=== PATIENT | male | born 1960 | race Caucasian/White ===

== ENCOUNTER 2017-01-26 18:35 | Inpatient (IN) | payer OTHER ==
[~2017-01-26] VITALS: Ht 177.8 cm; Wt 76.4 kg
[~2017-01-26 18:35] MED LIST: AMOX500C2 PO; CHOL200047 PO; CLOP75TA28 PO; DIPH50C PO; INSU100I13 SUBQ; INSU100I8 SUBQ; LAC10 PO; LIP40 PO; SPIR50TA2 PO; SYN.15T2 PO
[2017-01-26 18:37] VITALS: BP 91/64; PULSE 108; RESP 20; O2SAT 99
--- NOTE | 2017-01-26 19:05 | ED.REPORT ---
HPI-Dizziness / Weakness Date of Service Jan 26, 2017 ED Provider: Dr. Clifford 56 y/o male with a hx of hypotension, chronic liver disease with jaundice, bacterial blood infection, thyroid disease, high cholesterol, and DM presents to the ED complaining of dizziness onset 3 days ago. He states he started "feeling funny and dizzy" at that point. He became dizzy when he stood up two nights ago and experienced an episode of syncope when attempting to walk. He reports hitting his head, but denies any pain from this. Associated symptoms include cloudy and darker than normal urine, headache, high heart rate, chest pain, diffuse myalgia, and lightheadedness. He denies chest pain, shortness of breath, fever, chills, dysuria, hematuria, or hematochezia. The pt states that he is still "not feeling right" in the ED. Nursing Notes Stated Complaint: LIGHTHEADED Chief Complaint: General Complaint Nursing Notes Reviewed: Yes Allergies: Coded Allergies: No Known Allergies (Verified , 02/21/16) Scheduled Atorvastatin (Lipitor) 40 Mg Tablet 40 MG PO HS Cholecalciferol (Vitamin D3) (Vitamin D3) 5,000 Unit Tablet 5,000 UNIT PO HS Insulin Glargine (Lantus U100 Solostar Insulin Pen) 100 Unit/1 Ml Insuln.pen 20 UNIT SUBQ BID Insulin Regular, Human (Novolin-R U100 Insulin Vial) 100 Unit/1 Ml Vial 12 UNITS SQ TIDWM Lactulose (Lactulose) 10 Gm/15 Ml Solution 15 ML PO QAM Levothyroxine (Levothyroxine) 175 Mcg Tablet 175 MCG PO QAM diphenhydrAMINE HCl (Benadryl) 25 Mg Capsule 50 MG PO BID General Time Seen by MD: 19:04 Chief Complaint Dizzy Hx Obtained From: Patient Arrived By: Walk-in Onset Occurred: 3 days ago Symptom Duration: Since onset Recent Healthcare: No recent hospitalization, Recent doctor visit Similar Sx Previous: No Past Medical History Past Medical History Notes: Admit April 2015 w/gram positive bacteremia Past Medical History 1. Hypothyroidism due to radioactive iodine treatment as a child 2. Primary sclerosing cholangitis. Diagnosed by ERCP at gastroenterology. 2.1 Chronic jaundice 2.2 Cirrhosis with thrombocytopenia and hypoalbuminemia Managed by [facility] hepatology 3. Type II diabetes mellitus. Denies nephropathy, neuropathy, or retinopathy 4. Liver Disease 5. ho MRSA (urine, blood) 05/02/15/= 6. high cholesterol 7. bacterial infection of blood 2014 Past Surgical History Thoracoscopy Smoking History Former Smoker Social History Drug Use: Denies drug use Other Social History: Good social support Ambulatory Status Independent Review of Systems Constitutional: Denies: Chills, Fever Respiratory: Denies: Shortness of breath Cardiovascular: Denies: Chest pain GI: Denies: Hematochezia Neurologic: Reports: Dizziness, Headache, Lightheaded, Syncope, Weakness Complete sys rev & neg: except as marked. Male: Denies Dysuria, Denies Hematuria Musculoskeletal: Reports: Myalgia Physical Exam Initial Vital Signs Vital Signs (First) Date Time Temp Pulse Resp B/P Pulse Ox O2 Delivery O2 Flow Rate FiO2 01/26/17 18:37 36.4 108 20 91/64 99 Room Air Initial VS: Reviewed General/Constitutional: Awake, Alert Head / Eyes: Atraumatic, Normocephalic, PERRL, EOMI, No nystagmus Respiratory / Chest: Atraumatic, Breath sounds NL, Breath sounds = bilat, No respiratory distress Cardiovascular: Regular rhythm, Heart sounds NL Heart Rate / Rhythm: Positive: Tachycardia Neurologic: Oriented X3, Speech NL, No motor deficits ENT: Atraumatic, Airway patent, Mucous membranes moist, Pharynx NL Neck: Atraumatic, Supple, Full range of motion Abdomen: Atraumatic, Soft, Non-tender Back: Atraumatic, Full range of motion Lower Extremity / Pelvis / MS: Atraumatic, Full range of motion Skin: No rash, Warm, Dry Multiple excoriations on skin but not infected. Jaundiced, baseline for patient Psychiatric: Affect NL, Mood NL Upper Extremity / MS: Atraumatic, Full range of motion Ankle / Foot: Full range of motion small 6 mm patch of redness on distal medial left second toe Interpretation & Diagnostics Lab Results Interpretation Result Diagram: 01/26/17192301/26/171923 Test 01/26/17 19:24 01/26/17 21:00 White Blood Count 18.9th/mm3 (3.8-10.1) Red Blood Count 3.68mil/mm3 (4.40-5.80) Hemoglobin 10.0g/dL (13.8-17.2) Hematocrit 29.7% (41.0-50.0) Mean Corpuscular Volume 80.7fL (81-100) Mean Corpuscular Hemoglobin 27.2pg (27.0-35.0) Mean Corpuscular Hemoglobin Concent 33.7% (32.0-37.0) Red Cell Distribution Width 15.8% (12.3-15.4) Platelet Count 159bil/L (150-400) Neutrophils (%) (Auto) 86.7% (40-74) Lymphocytes (%) (Auto) 5.0% (14-46) Monocytes (%) (Auto) 7.6% (4-12) Eosinophils (%) (Auto) 0.2% (0-5) Basophils (%) (Auto) 0.1% (0-3) Prothrombin Time 10.5sec (8.1-12.5) Prothromb Time International Ratio 0.98ratio Activated Partial Thromboplast Time 27.6sec (22.8-33.0) Sodium Level 126mEq/L (134-144) Potassium Level 4.2mEq/L (3.5-5.2) Chloride Level 88mEq/L (97-108) Carbon Dioxide Level 20mmol/L (18-29) Blood Urea Nitrogen 33mg/dL (6-24) Creatinine 1.28mg/dL (0.76-1.27) Estimat Glomerular Filtration Rate 62mL/min (>59) Glucose Level 378mg/dL (60-99) Lactic Acid Level 1.7mmol/L (0.4-2.0) Calcium Level 9.1mg/dL (8.5-10.1) Magnesium Level 2.1mg/dL (1.6-2.6) Total Bilirubin 6.5mg/dL (0.0-1.2) Aspartate Amino Transf (AST/SGOT) 124U/L (0-50) Alanine Aminotransferase (ALT/SGPT) 65U/L (0-44) Alkaline Phosphatase 1098U/L (25-150) Troponin T < 0.010ug/L (0.0-0.011) Pro-B-Type Natriuretic Peptide 954.6pg/mL (0-210) Total Protein 7.8g/dL (6.4-8.4) Albumin 2.6g/dL (3.4-5.0) Procalcitonin 4.30ng/mL (0.00-0.08) Hold Nguyen Top Tube Received (Received) Urine Color Dark yellow (YELLOW) Urine Appearance Hazy (CLEAR,HAZY) Urine pH 6.0 (5.0-8.0) Urine Specific [place] 1.010 (1.003-1.035) Urine Protein 100mg/dL (NEG,TRACE) Urine Glucose (UA) 500mg/dL (NEGATIVE) Urine Ketones Negativemg/dL (NEGATIVE) Urine Occult Blood Large (NEGATIVE) Urine Nitrite Positive (NEGATIVE) Urine Bilirubin Moderate (NEGATIVE) Urine Ictotest Positive (Negative) Urine Urobilinogen 4.0mg/dL (NORMAL) Urine Leukocyte Esterase Moderate (NEGATIVE) Urine RBC 11-50/hpf (0-2) Urine WBC 0-5/hpf (0-5) Urine Epithelial Cells None/hpf (NONE-MOD) Urine Crystals None seen (NONE SEEN) Urine Bacteria Few/hpf (NONE-FEW) Urine Hyaline Casts None/lpf (NONE) Urine Granular Casts None seen (NONE SEEN) Urine Waxy Casts None seen (NONE SEEN) Urine Red Blood Cell Casts None seen (NONE SEEN) Urine White Blood Cell Casts None seen (NONE SEEN) Urine Mucus Present (None Seen) Urine Trichomonas None seen (NONE SEEN) Urine Yeast None (NONE SEEN) Urinalysis Comment None Urine Culture Reflexed Indicated ECG Interpretation ECG Interpretation: Sinus tachycardia. Rate 103. no ST elevation T wave inversion in aVR and V3 Unchanged from prior Time: 19:15 Interpreted by: ED physician X-Ray Chest Interpretation Chest Xray Interpretation: IMPRESSION: 1. Small right pleural effusion versus pleural thickening. Dictated by: Ayan Sanders M.D. on 01/26/2017 at 20:51 Approved by: Ayan Sanders M.D. on 01/26/2017 at 20:52 Interpretation / Wet Read by: Interpret - Radiologist CT Head Interpretation IMPRESSION: 1. No acute intracranial abnormality. 2. Bilateral white matter hypodensities likely representing [id number] chronic small vessel ischemic changes. Dictated by: Ayan Sanders M.D. on 01/26/2017 at 20:07 Approved by: Ayan Sanders M.D. on 01/26/2017 at 20:09 Study: Head CT no contrast Interpretation / Wet Read by: Interpret - Radiologist Re-Eval/Medical Decision Med Decision/Clinical Course 56-year-old male with past medical history of poorly controlled diabetes, bacteremia several times, diabetic foot infections, and unknown liver disease which causes chronic elevated bili and transaminitis here with syncopal episode several days ago along with lightheadedness with standing. Differential diagnosis includes but is not limited to hypovolemia versus dehydration versus pneumonia versus urinary tract infection. I did perform a CT scan on the patient's head to rule out intracranial abnormality as he fell recently and hit his head. His CT head was normal. CBC was remarkable for baseline anemia, along with leukocytosis which is not his baseline. He does have a left shift. CMP shows hyponatremia which does appear to be patient's baseline, along with elevated T bili and elevated LFTs, which are also patients baseline. He has an acute kidney injury. When he arrived, he had a shock index with tachycardia in the 110s and hypotension with systolics in the 90s. This improved with 1 L of fluids. His chest x-ray and urinalysis are normal. At this time, I do not feel patient requires LP to rule out meningitis, as he does not have any signs of meningitis. I do feel, however, that he has some infectious process going on. His abdominal exam is completely benign and I do not feel he requires CT scan of his abdomen. I feel he most likely has bacteremia again. He has had it several times without known source. I have drawn blood cultures, and started him on broad-spectrum antibiotics, and admitted him to the hospitalist. He is aware and amenable to admission. Re-Evaluation/Progress #1: Time of Eval: 20:54 Patient Status: Condition improved Re-Evaluation/Progress Note: Pt rechecked, who is comfortable. He is informed of his radiology results and further treatment plan. Re-Evaluation/Progress #2: Time of Eval: 21:23 Patient Status: Condition improved Re-Evaluation/Progress Note: Pt rechecked, who is comfortable. Non-tender abdomen. FROM in the neck. No headache. The plan for admission is discussed. The pt understands and agrees with the plan. All questions are addressed at this time. Re-Evaluation/Progress #3: Time of Eval: 21:34 Patient Status: Condition improved Re-Evaluation/Progress Note: Pt rechecked and further physical evaluation is performed. Consultation : Referral / Consult Name: Estela Joiner DO Consulted With: Hospitalist Call Returned at: 21:41 Nuclear Control Room Operator: Agrees with eval, Agrees with plan, Accepts admit Note: Spoke with Dr. Joiner, hospitalist, regarding pt's case. Dr. Joiner agrees with the evaluation and agrees to admit the pt. Counseled Regarding: Diagnosis, Lab results, Need for admission Patient Discharge & Departure Impression: Primary Impression: Leukocytosis Leukocytosis type: unspecified Qualified Code: D72.829 - Elevated white blood cell count, unspecified Additional Impressions: Acute kidney injury Tachycardia Disposition: ADMITTED TO HOSPITAL Discharge Condition All VS Reviewed: Yes Condition: Stable Referrals: Jessica Aguilar MD (PCP) Scribe Attestation Portion of this note were transcribed by Danielle Orellana and Manohar Miller. I, Dr. Clifford, personally performed the history,physical exam and medical decision- making; I reviewed and confirmed the accuracy of the information in transcribed note. Signed by Danielle Orellana and Chandan Bartlettibe. 01/26/2017 and 2258. Jessica Aguilar MD, Rebecca A MD Jan 26, 2017 19:05 Danielle Orellana Jan 26, 2017 19:14 MANOHAR MILLER Jan 26, 2017 20:55
[2017-01-26 19:38] LABS: BASOPHILS % (AUTO) 0.1 % (0-3); EOSINOPHILS % (AUTO) 0.2 % (0-5); MONOCYTES % (AUTO) 7.6 % (4-12); Mean Corpuscular Hemoglobin 27.2 pg (27.0-35.0); Mean Corpuscular Volume 80.7 fL (81-100); NEUTROPHILS % (AUTO) 86.7 % (40-74); Platelet Count 159 bil/L (150-400)
[2017-01-26 19:50] LABS: INR 0.98 ratio
[2017-01-26 19:57] LABS: TROPONIN T < 0.010 ug/L (0.0-0.011)
[2017-01-26 20:06] LABS: Magnesium 2.1 mg/dL (1.6-2.6)
--- NOTE | 2017-01-26 20:10 | DRSVH ---
PROCEDURE: CT BRAIN WITHOUT CONTRAST ([id number]) INDICATIONS: trauma TECHNIQUE: Noncontrast 4.5 mm thick angled axial sections acquired from the foramen magnum to the vertex, with c oronal reformats. COMPARISON: None. FINDINGS: Image quality: Excellent. CSF spaces: Basal cisterns are patent. No extra-axial fluid collections. Ventricles are normal in size and shape. Brain: No intracranial hemorrhage, mass, or mass effect. There are subcortical, periventricular and deep white matter hypodensities which are nonspecific but suggestive of [id number] chronic sma ll vessel ischemic changes. There is intracranial internal carotid artery atherosclerosis. Skull and face: Calvarium and visualized facial bones are intact, without suspicious lesions. Sinuses: Visualized sinuses and mastoids are clear. IMPRESSION: 1. No acute intracranial abnormality. 2. Bilateral white matter hypodensities likely representing [id number] chronic small vessel is chemic changes. Dictated by: Ayan Sanders M.D. on 01/26/2017 at 20:07 Approved by: Ayan Sanders M.D. on 01/26/2017 at 20:09
[2017-01-26] MEDS ORDERED: 0.9% Sodium Chloride 1,000 ML IV ONE (20:20)
--- NOTE | 2017-01-26 20:54 | DRSVH ---
PROCEDURE: X-RAY CHEST, TWO VIEWS ([id number]) INDICATIONS: lightheadedness TECHNIQUE: 2 views of the chest were acquired. COMPARISON: [facility], CR, CHEST 2VW, 01/17/2008, 14:27. [facility], CR, X R CHEST 2VW, 10/17/2016, 16:53. FINDINGS: Surgical changes and devices: None. Lungs and pleura: There is mild blunting of the right costophrenic angle consistent with small pleura l effusion or pleural thickening. Lungs are otherwise clear. Mediastinum: Mediastinal contours are normal. Heart size is normal. Bones and chest wall: No suspicious bony abnormalities. Soft tissues appear unremarkable. IMPRESSION: 1. Small right pleural effusion versus pleural thickening. Dictated by: Ayan Sanders M.D. on 01/26/2017 at 20:51 Approved by: Ayan Sanders M.D. on 01/26/2017 at 20:52
[2017-01-26 21:14] VITALS: BP 139/78; PULSE 81; RESP 20; O2SAT 98
[2017-01-26 21:16] LABS: APPEARANCE,URINE HAZY (CLEAR,HAZY); COLOR,URINE DARK YELLOW (YELLOW)
[2017-01-26 21:17] LABS: OCCULT BLOOD,URINE LARGE (NEGATIVE)
[2017-01-26 21:19] LABS: ICTOTEST,URINE POSITIVE (Negative)
[2017-01-26] MEDS ORDERED: Vancomycin Dose per Pharmacist XX ONE (21:35)
[2017-01-26] MEDS ORDERED: Piperacillin-Tazo 3.375 Gm Inj 3.375 GM in Dextrose 5% Minibag Plus 50 ML IV ONE (21:35)
[2017-01-26] MEDS ORDERED: Vancomycin Inj 1,500 MG in 0.9% Sodium Chloride 500 ML IV ONE (22:00)
[2017-01-26] MEDS ORDERED: DIPH25CA6 PO (22:19)
[2017-01-26] MEDS ORDERED: INSU100V27 SQ (22:19)
[2017-01-26] MEDS ORDERED: CHOL500011 PO (22:19)
[2017-01-26] MEDS ORDERED: LEVO175T5 PO (22:22)
[2017-01-26] MEDS ORDERED: Polyethylene Glycol (PEG) 17 Gm Powder PO PRN (22:30)
[2017-01-26] MEDS ORDERED: Ondansetron 2 mg/mL 2 mL Inj IVPUSH PRN (22:30)
[2017-01-26] MEDS ORDERED: Alum-Mag Hydrox-Simeth 30 mL Suspension PO PRN (22:30)
--- NOTE | 2017-01-26 22:54 | PCM.HPMED ---
Subjective Date of Service Jan 26, 2017 Primary Provider: Admitting Physician: Estela Joiner DO Primary Care Physician: Jessica Aguilar MD Attending Physician: Estela Joiner DO Admit Status: From the Emergency Department Chief Complaint: Dizziness History of Present Illness: 56yoM with history of orthostatic hypotension, primary sclerosing cholangitis, DM type 2 insulin, hypothyriodism and prior infected diabetic foot ulcers ( including MRSA) who presented to the ED following a syncopal episode two days ago with the complaint of dizziness and generalized malaise. He states that he just 'hasn't felt right' for the past three days and two days ago he states that he blacked out upon standing. He endorses brief loss of consciousness but he states that he did not hit his head and denies any trauma secondary to the incident. Associated symptoms headache and generalized weakness. Of note, he reports scattered excoriations on his upper and lower extremities secondary to chronic itching related to his PSC, benadryl provides mild relief. He denies redness, swelling, increased tenderness or purulent drainage from any of these. Additionally he denies fever, chills, chest pain, cough, shortness of breath, darker than normal urine but otherwise no or GI symptoms. In the ED, vitals 36.4, BP 91/64, pulse 108, 99% on room air. Labs: wbc 18.9, H/ H 10.0/29.7, plts 159, sodium 126, potassium 4.2, chloride 88, bicarb 20, BUN 33 , creatinine 1.28, serum glucose 378. procalcitonin 4.30. lactic acid 1.7, total bili 6.5, AST/ALT 124/65, alk phos 1098, troponin negative x1, proBNP 954.6. Urinalysis- 0-5wc, 11-50rbc, large occult blood , positive nitrite, moderate bili, moderate leukocyte esterase, few bacteria, ECG showing sinus tachycardia with rate 103, no ST elevation and unchanged from prior. Chest xray showing a small right pleural effusion vs pleural thickening. CT head with no acute intracranial abnormality, bilateral white matter hypodensities likely representing mild-to- moderate chronic small vessel ischemic changes. Blood and urine cultures sent and he received an IV dose of vancomycin and zosyn as well as a 1L bolus of normal saline. Review of Systems: A comprehensive review of systems was conducted with the patient and found to be negative except as above in the History of Present Illness. Allergies Coded Allergies: No Known Allergies (Verified , 02/21/16) Home Medications Amoxicillin 1,000 MG PO TID Atorvastatin 40 MG PO HS Cholecalciferol (Vitamin D3) 4,000 UNIT PO HS Clopidogrel 75 MG PO DAILY Diphenhydramine Hcl 50 MG PO BID Insulin Glargine 12 UNIT SUBQ BID Insulin Glulisine 110-11 UNITS SUBQ TIDAC 10-11 unit nutritional dose, plus additional insulin (correctional dose) for food intake (carb count). Lactulose 10 Gm/15 Ml Solution 15 ML PO BID Levothyroxine 150 MCG PO DAILYAC [id number] MG PO QAM PMH Primary sclerosing cholangitis.Diagnosed by ERCP at gastroenterology. Chronic jaundice Cirrhosis with thrombocytopenia and hypoalbuminemia; Managed by [facility] hepatology Type II diabetes mellitus. Denies nephropathy, neuropathy, or retinopathy Hypothyroidism Hypotension Hyperlipidemia h/o necrotizing fasciitis h/o MRSA Surgical History Thoracoscopy I&D infected toe Family History Mother: diabetes Social History Hx Alcohol Use: No Hx Substance Use: No Hx Tobacco Use: Yes Smoking Status: Former Smoker Living Arrangement: with Family Exam Vital Signs Vital Sign - Last Date Time Temp Pulse Resp B/P Pulse Ox O2 Delivery O2 Flow Rate FiO2 01/26/17 21:14 37.1 81 20 139/78 98 Room Air Exam Gen: No acute distress, well-developed, well-nourished, appropriately interactive HEENT: NCAT, PERRLA, +scleral icterus, oropharynx appears normal, mucosa dry. Neck: nontender. No JVD, bruits or lymphadenopathy Cardiac: RRR with no murmurs, rubs, or gallops appreciated Lungs: Clear to auscultation bilaterally with no crackles, wheezes, or rhonchi. Abd: Soft, nontender, nondistended, bowel tones present, no ascites, no hepatosplenomegaly or masses appreciated. Ext: numerous/scattered excoriations 1-2 cm in diameter of upper/lower extremities of various stages of healing, no erythema, swelling or purulence noted. No cyanosis or edema. Skin: Jaundiced, warm, dry, excoriations as above Neuro: CN II-XII grossly intact, no focal motor or sensory deficits, alert and oriented x3. Psych: Normal mood and affect. Alert and oriented to person, place, and time. Lab and Diagnostics Labs Laboratory Tests Test 01/26/17 19:24 01/26/17 21:00 White Blood Count 18.9th/mm3 (3.8-10.1) Red Blood Count 3.68mil/mm3 (4.40-5.80) Hemoglobin 10.0g/dL (13.8-17.2) Hematocrit 29.7% (41.0-50.0) Mean Corpuscular Volume 80.7fL (81-100) Mean Corpuscular Hemoglobin 27.2pg (27.0-35.0) Mean Corpuscular Hemoglobin Concent 33.7% (32.0-37.0) Red Cell Distribution Width 15.8% (12.3-15.4) Platelet Count 159bil/L (150-400) Neutrophils (%) (Auto) 86.7% (40-74) Lymphocytes (%) (Auto) 5.0% (14-46) Monocytes (%) (Auto) 7.6% (4-12) Eosinophils (%) (Auto) 0.2% (0-5) Basophils (%) (Auto) 0.1% (0-3) Prothrombin Time 10.5sec (8.1-12.5) Prothromb Time International Ratio 0.98ratio Activated Partial Thromboplast Time 27.6sec (22.8-33.0) Sodium Level 126mEq/L (134-144) Potassium Level 4.2mEq/L (3.5-5.2) Chloride Level 88mEq/L (97-108) Carbon Dioxide Level 20mmol/L (18-29) Blood Urea Nitrogen 33mg/dL (6-24) Creatinine 1.28mg/dL (0.76-1.27) Estimat Glomerular Filtration Rate 62mL/min (>59) Glucose Level 378mg/dL (60-99) Lactic Acid Level 1.7mmol/L (0.4-2.0) Calcium Level 9.1mg/dL (8.5-10.1) Magnesium Level 2.1mg/dL (1.6-2.6) Total Bilirubin 6.5mg/dL (0.0-1.2) Aspartate Amino Transf (AST/SGOT) 124U/L (0-50) Alanine Aminotransferase (ALT/SGPT) 65U/L (0-44) Alkaline Phosphatase 1098U/L (25-150) Troponin T < 0.010ug/L (0.0-0.011) Pro-B-Type Natriuretic Peptide 954.6pg/mL (0-210) Total Protein 7.8g/dL (6.4-8.4) Albumin 2.6g/dL (3.4-5.0) Procalcitonin 4.30ng/mL (0.00-0.08) Hold Nguyen Top Tube Received (Received) Urine Color Dark yellow (YELLOW) Urine Appearance Hazy (CLEAR,HAZY) Urine pH 6.0 (5.0-8.0) Urine Specific [place] 1.010 (1.003-1.035) Urine Protein 100mg/dL (NEG,TRACE) Urine Glucose (UA) 500mg/dL (NEGATIVE) Urine Ketones Negativemg/dL (NEGATIVE) Urine Occult Blood Large (NEGATIVE) Urine Nitrite Positive (NEGATIVE) Urine Bilirubin Moderate (NEGATIVE) Urine Ictotest Positive (Negative) Urine Urobilinogen 4.0mg/dL (NORMAL) Urine Leukocyte Esterase Moderate (NEGATIVE) Urine RBC 11-50/hpf (0-2) Urine WBC 0-5/hpf (0-5) Urine Epithelial Cells None/hpf (NONE-MOD) Urine Crystals None seen (NONE SEEN) Urine Bacteria Few/hpf (NONE-FEW) Urine Hyaline Casts None/lpf (NONE) Urine Granular Casts None seen (NONE SEEN) Urine Waxy Casts None seen (NONE SEEN) Urine Red Blood Cell Casts None seen (NONE SEEN) Urine White Blood Cell Casts None seen (NONE SEEN) Urine Mucus Present (None Seen) Urine Trichomonas None seen (NONE SEEN) Urine Yeast None (NONE SEEN) Urinalysis Comment None Urine Culture Reflexed Indicated Microbiology 01/26/17 Blood Culture, Received Pending 01/26/17 Urine Culture, Received Pending Result Diagram: 01/26/17192301/26/171923 Microbiology Blood and urine cultures, pending. X-Rays, CTs and MRIs X-RAY CHEST, TWO VIEWS IMPRESSION: 1. Small right pleural effusion versus pleural thickening. Dictated by: Ayan Sanders M.D. on 01/26/2017 at 20:51 Approved by: Ayan Sanders M.D. on 01/26/2017 at 20:52 CT BRAIN WITHOUT CONTRAST IMPRESSION: 1. No acute intracranial abnormality. 2. Bilateral white matter hypodensities likely representing [id number] chronic small vessel ischemic changes. Dictated by: Ayan Sanders M.D. on 01/26/2017 at 20:07 Approved by: Ayan Sanders M.D. on 01/26/2017 at 20:09 12-lead ECG ECG showing sinus tachycardia with rate 103, no ST elevation and unchanged from prior. Chest xray showing a small right pleural effusion vs pleural thickening. Assessment & Plan 56yoM with history of orthostatic hypotension, primary sclerosing cholangitis, DM type 2 insulin, hypothyriodism and prior infected diabetic foot ulcers ( including MRSA) who presented to the ED following a syncopal episode two days ago with the complaint of dizziness and generalized malaise. Admitted for further evaluation and management of sepsis and syncope. 2. Sepsis, present on admission. Active. -meets criteria on admission: leukocytosis, tachycardia, hypotension; suspected infection w/ procalcitonin of 4.3, unknown source. -hx of infected diabetic foot ulcers, scattered excoriations of upper/lower extremities secondary to chronic itching. Do not appear infected. Likely intraabdominal -MRSA screen and blood cultures, pending -continue vancomycin, zosyn; start date 01/26/17 -procalcitonin 4.3, lactic acid 1.7 -MRSA screen and cultures, pending -IVFs normal saline at 100mls/hr -continue vancomycin/zosyn -CBC in the morning WILLAM, acute, POA -continue to monitor -avoid nephrotoxic medications Syncope, present on admission. Active. -likely secondary to dehydration due to poor PO intake. -sinus tachycardia on EKG otherwise unremarkable -chest xray with small right pleural effusion -CT head with no acute abnormalities -troponin negative x1 -proBNP elevated 954.6 -check orthostatics -continue IVFs -CBC, CMP, lactic acid, in the morning. Diabetes mellitus type 2, insulin using (chronic), present on admission. Active. -HbA1c, pending -home dose Lantus 20U bid; converted to 15U bid (d/t decreased PO intake but will likely require home dose) -correctional scale in place Primary sclerosing cholangitis w/subsequent cirrhosis, transaminitis and jaundice (chronic). Ongoing -reportedly diagnosed by ERCP at gastroenterology -continue home diphenhydramine for itching -continue home lactulose -CMP in the morning -consider GI consult Hypotension, chronic, Ongoing. -orthostatic vitals -continue IVFs as above -hold spironolactone Hyperlipidemia, chronic, managed -continue home statin Hypothyroidism, chronic, under therapy -continue home levothyroxine PRN: NO Acetaminophen-fever/headache/mild/moderate pain d/t cirrhosis Antiemetics, as needed Bowel regimen, as needed. Disposition: Patient is admitted under inpatient status with expected length of stay greater than 2 midnights due to severity of presenting symptoms, risk of adverse event, and complexity of treatment plan. Pain Evaluation: Adequate Pain Control GI Prophylaxis: Not indicated VTE Prophylaxis Indicated: Meets Criteria for Anticoag Therapy VTE Prophylaxis: Sub-Q Heparin (Unfractionated) Resuscitation Status: CPR: Attempt Resuscitation Attending Statement The patient was seen and examined together with house staff on 01/26/2017 and I have added additional information to the note above. Princess Preston DO Jan 26, 2017 22:54 Estela Joiner DO Jan 27, 2017 04:10 GI Prophylaxis: Not indicated VTE Prophylaxis Indicated: Meets Criteria for Anticoag Therapy VTE Prophylaxis: Sub-Q Heparin (Unfractionated) Resuscitation Status: CPR: Attempt Resuscitation Princess Preston DO Jan 26, 2017 22:54 VTE Prophylaxis: Sub-Q Heparin (Unfractionated) Resuscitation Status: CPR: Attempt Resuscitation Princess Preston DO Jan 26, 2017 22:54 Princess Preston DO Jan 26, 2017 22:54 - Continue hydroxyzine 25mg four times daily for itch - Hydrocortisone cream as needed for itch Hypotension, chronic, stable - Orthostatic vitals - Continue NS rehydration: 2L to be completed - Encourage po intake during stay and at discharge Hyperlipidemia, chronic, managed - Continue atorvastatin 40mg daily - Lipid panel pending Hypothyroidism, chronic, under therapy - Continue home medication- 150mcg Levoxyl - TSH and free T4 ordered - Recommend outpatient follow up for adjustments if needed History of MRSA septicemia, January 2015 - MRSA screen - vancomycin provided for possible foot infection will provide MRSA coverage Bowel regimen PRN Antiemetics PRN Amoxicillin 1,000 MG PO TID Atorvastatin 40 MG PO HS Cholecalciferol (Vitamin D3) 4,000 UNIT PO HS Clopidogrel 75 MG PO DAILY Diphenhydramine Hcl 50 MG PO BID Insulin Glargine 12 UNIT SUBQ BID Insulin Glulisine 110-11 UNITS SUBQ TIDAC 10-11 unit nutritional dose, plus additional insulin (correctional dose) for food intake (carb count). Lactulose 10 Gm/15 Ml Solution 15 ML PO BID Levothyroxine 150 MCG PO DAILYAC [id number] MG PO QAM Pain Evaluation: Adequate Pain Control GI Prophylaxis: Not indicated VTE Prophylaxis Indicated: Meets Criteria for Anticoag Therapy VTE Prophylaxis: Sub-Q Heparin (Unfractionated) Princess Preston DO Jan 26, 2017 22:54 01/26/174 01/26/171923 Microbiology Blood and urine cultures, pending. X-Rays, CTs and MRIs PROCEDURE: X-RAY CHEST, TWO VIEWS ([id number]) INDICATIONS: lightheadedness TECHNIQUE: 2 views of the chest were acquired. COMPARISON: [facility], CR, CHEST 2VW, 01/17/2008, 14:27. [facility], CR, XR CHEST 2VW, 10/17/2016, 16:53. FINDINGS: Surgical changes and devices: None. Lungs and pleura: There is mild blunting of the right costophrenic angle consistent with small pleural effusion or pleural thickening. Lungs are otherwise clear. Mediastinum: Mediastinal contours are normal. Heart size is normal. Bones and chest wall: No suspicious bony abnormalities. Soft tissues appear unremarkable. IMPRESSION: 1. Small right pleural effusion versus pleural thickening. Dictated by: Ayan Sanders M.D. on 01/26/2017 at 20:51 Approved by: Ayan Sanders M.D. on 01/26/2017 at 20:52 PROCEDURE: CT BRAIN WITHOUT CONTRAST ([id number]) INDICATIONS: trauma TECHNIQUE: Noncontrast 4.5 mm thick angled axial sections acquired from the foramen magnum to the vertex, with coronal reformats. COMPARISON: None. FINDINGS: Image quality: Excellent. CSF spaces: Basal cisterns are patent. No extra-axial fluid collections. Ventricles are normal in size and shape. Brain: No intracranial hemorrhage, mass, or mass effect. There are subcortical , periventricular and deep white matter hypodensities which are nonspecific but suggestive of ahiv-nu-ejofzdak chronic small vessel ischemic changes. There is intracranial internal carotid artery atherosclerosis. Skull and face: Calvarium and visualized facial bones are intact, without suspicious lesions. Sinuses: Visualized sinuses and mastoids are clear. IMPRESSION: 1. No acute intracranial abnormality. 2. Bilateral white matter hypodensities likely representing lzun-uv-qaimnxde chronic small vessel ischemic changes. Dictated by: Ayan Sanders M.D. on 01/26/2017 at 20:07 Approved by: Ayan Sanders M.D. on 01/26/2017 at 20:09 Princess Preston DO Jan 26, 2017 22:54
[2017-01-26 22:55] VITALS: BP 100/57; PULSE 90; RESP 20; O2SAT 99
[2017-01-26 23:24] VITALS: BP 116/72; PULSE 100; RESP 18; O2SAT 98
[2017-01-27] VITALS (17 sets, daily range): BP systolic 75–137; BP diastolic 43–78; PULSE 79–101; RESP 14–20; O2SAT 95–99
[2017-01-27] MEDS ORDERED: Glucose 40% Oral Gel 15 Gm Tube PO PRN (00:15)
[2017-01-27] MEDS ORDERED: Non-Formulary Medication (Levothyroxine 175 MCG) PO SCH (00:20)
[2017-01-27] MEDS: Sodium Chloride LOK Flush 10 mL Syringe IVFLUSH SCH ×3 (01:08→16:13)
[2017-01-27] MEDS: 0.9% Sodium Chloride 1,000 ML IV SCH ×4 (02:40→15:13)
[2017-01-27 06:02] LABS: BASOPHILS % (AUTO) 0 % (0-3); EOSINOPHILS % (AUTO) 0.4 % (0-5); Mean Corpuscular Volume 80.4 fL (81-100); NEUTROPHILS % (AUTO) 85.6 % (40-74); Platelet Count 131 bil/L (150-400)
--- NOTE | 2017-01-27 07:26 | NUR ---
NOC PT admitted over noc shift with cc of increased weakness over past few days and feeling dizzy. Pt ORA. Orthostatics were done and positive. Dropped from 130's to 70's standings. Pt reported dizziness. Denies any pain. Pt has uremia and has noted scabs on him from itching. THe top of his head has abrasion from "my car [place]roy falling on me." R laureano has abrasion from fall 2 days at home when pt "blacked out." PT went for abdominal CT. + results. PT now NPO. VOids per urinal, luther colored urine. Calls for assistance with ambulation. IV vanco was infusing when pt received from ED. Currently NS is infusing at 100ml. Urine will be strained for stone.
[2017-01-27] MEDS: Insulin LISPRO 300 Unit/3 mL Inj SUBQ SCH ×4 (08:28→22:00)
[2017-01-27] MEDS: Insulin GLARgine 100 Unit/mL Syringe SUBQ SCH ×2 (08:28→23:43)
[2017-01-27] MEDS: Heparin 5,000 Unit/mL Inj SUBQ SCH ×2 (08:29→16:13)
[2017-01-27] MEDS: Lactulose 20 Gm/30 mL 30 mL Syrup PO SCH (08:30)
[2017-01-27] MEDS ORDERED: diphenhydrAMINE 25 mg Capsule PO PRN (08:30)
[2017-01-27] MEDS ORDERED: 0.9% Sodium Chloride 1,000 ML IV ONE ×2 (08:40→12:00)
[2017-01-27] MEDS ORDERED: cefTRIAXone Inj 2,000 MG in Dextrose 5% Minibag Plus 50 ML IV SCH (08:40)
[2017-01-27 09:20] LABS: BASOPHILS % (AUTO) 0.1 % (0-3); EOSINOPHILS % (AUTO) 0.4 % (0-5); MONOCYTES % (AUTO) 5.6 % (4-12); Mean Corpuscular Hemoglobin 27.4 pg (27.0-35.0); Mean Corpuscular Volume 79.9 fL (81-100); NEUTROPHILS % (AUTO) 89.3 % (40-74); Platelet Count 137 bil/L (150-400)
--- NOTE | 2017-01-27 11:00 | NUR ---
HYPOTENSION Patient received 1 liter bolus of NS, BP barely increased to 103/60. HR in 80's, remains afebrile. Remains NPO in preparation for surgery this afternoon. C/o R lower flank pain, states it feels 'sore' when lying on right side too much. Urine strained, no stones. Care continues. Addendum: 01/27/17 at 1355 by VALERIA VELAZCO RN Completed 2nd liter bolus of NS, BP increased to 115/68.
--- NOTE | 2017-01-27 11:51 | DRSVH ---
PROCEDURE: CT ABDOMEN AND PELVIS WITHOUT CONTRAST ([id number]) INDICATIONS: sepsis, cirrhosis TECHNIQUE: Noncontrast 5 mm thick sections acquired from the diaphragms to the symphysis. 5 mm coronal and sagi ttal reformats were then performed. For radiation dose reduction, the following was used: automated exposure control, adjustment of mA and/or kV according to patient size. COMPARISON: None. FINDINGS: Image quality: Excellent. ABDOMEN: Lung bases: Lung bases are clear. Heart size is normal. Solid organs: Liver is shrunken and nodular in appearance. The spleen is enlarged without focal mass . Gallbladder is unremarkable. Pancreas is normal in contours. No adrenal nodules. Kidneys are nor mal in size. The left kidney demonstrates approximately 8-10 punctate nonobstructing renal calcificat ions. The right kidney demonstrates approximately 13-15 renal calcifications, the largest in the infe rior pole measuring approximately 5 mm, Hounsfield units 504. There is a 3 mm calcification within th e posterior dependent right renal pelvis. 6 mm calcification Hounsfield units 984 is present within t he right proximal ureter. There has mild to moderate right hydronephrosis. Peritoneum and bowel: Unenhanced bowel loops demonstrate normal wall thickness and caliber. No free fluid or air. Nodes and vessels: No retroperitoneal or mesenteric adenopathy by size criteria. Aorta and inferior vena cava are normal in caliber. Miscellaneous: No ventral hernias. PELVIS: Genitourinary: Bladder wall thickness is normal. No bladder calculi. Miscellaneous: No inguinal hernias or adenopathy. Bones: No suspicious bony lesions. No vertebral body compression fractures. IMPRESSION: 1. Mild to moderate right hydronephrosis and hydroureter secondary to obstructing 6 mm proximal right ureteral calcification. 2. Nonobstructing bilateral subcentimeter renal calculi as above. 3. Splenomegaly and cirrhosis. Dictated by: Gwendolyn Hollins M.D. on 01/27/2017 at 11:25 Approved by: Gwendolyn Hollins M.D. on 01/27/2017 at 11:50
--- NOTE | 2017-01-27 11:56 | PCM.PNMED ---
Subjective Date of Service Jan 27, 2017 Subjective Pt complains of flank pain this morning. He denies any fever or chills. He denies nausea and vomiting. He states he continues to feel "unwell and dizzy". No other complaints or concerns at this time. Exam Vital Signs Vital Sign - Last Date Time Temp Pulse Resp B/P Pulse Ox O2 Delivery O2 Flow Rate FiO2 01/27/17 11:22 36.8 92 16 103/60 98 Room Air Intake and Output 01/26/17 01/26/17 01/27/17 Cumulative From/Thru 15:00 23:00 07:00 01/26/17 18:37 - 01/27/17 06:18 Intake Total 895 ml 895 ml Output Total 625 ml 625 ml Balance 270 ml 270 ml Intake Oral 650 ml 650 ml IV Total 245 ml 245 ml Output Urine Total 625 ml 625 ml Exam GENERAL: NAD, Pt laying in bed comfortably HEENT: AT/NC, PERRLA, EOMI, Sclerae are icteric, Mucus Membranes are moist CARDIAC: RRR; No M/R/G PULM: CTAB; No wheezes or rhonchi bilaterally ABD: Soft, Nontender, Nondistended, Positive bowel sounds in all quadrants, No Hepatosplenomegaly appreciated; Bilateral CVA tenderness present EXT: No C/C/E; No calf tenderness bilaterally SKIN: Pt is jaundiced NEURO: Alert and oriented x3; Following all commands PSYCH: Normal mood and affect IVs and Medications Medications Reviewed: Medications were reviewed in detail Lab and Diagnostics Result Diagram: 01/27/17 0858 01/27/17 0550 Microbiology Blood and urine cultures, pending. X-Rays, CTs and MRIs X-RAY CHEST, TWO VIEWS IMPRESSION: 1. Small right pleural effusion versus pleural thickening. Dictated by: Ayan Sanders M.D. on 01/26/2017 at 20:51 Approved by: Ayan Sanders M.D. on 01/26/2017 at 20:52 CT BRAIN WITHOUT CONTRAST IMPRESSION: 1. No acute intracranial abnormality. 2. Bilateral white matter hypodensities likely representing [id number] chronic small vessel ischemic changes. Dictated by: Ayan Sanders M.D. on 01/26/2017 at 20:07 Approved by: Ayan Sanders M.D. on 01/26/2017 at 20:09 12-lead ECG ECG showing sinus tachycardia with rate 103, no ST elevation and unchanged from prior. Chest xray showing a small right pleural effusion vs pleural thickening. Assessment & Plan 56yoM with history of orthostatic hypotension, primary sclerosing cholangitis, DM type 2 insulin, hypothyriodism and prior infected diabetic foot ulcers ( including MRSA) who presented to the ED following a syncopal episode two days ago with the complaint of dizziness and generalized malaise. Admitted for further evaluation and management of sepsis and syncope. 1. Severe Sepsis - Pt is significantly hypotensive this morning - Check Lacate q 2 hours x4 - Bolus with 1 liter NS STAT - Start NS at 150 mL/hour IV - Blood culture are pending - Pt was given a dose of IV Vancomycin and Zosyn in the ER - Likely source is urine, therefore I will start him on IV Rocephin 2 grams daily - ID consulted - Pt to be made PCC status as he is critically ill 2. Acute Urinary Tract Infection - Present on admission - Start IV Rocephin 2 grams daily now - Secondary to obstructing stone most likely 3. Nephrolithiasis - CT Abdomen and Pelvis confirms a large obstructing stone - Dr. Blanton with Urology has been consulted - IV Morphine PRN for pain relief - Pt is NPO now for pending procedure 4. Acute Kidney Injury - Secondary to renal hypoperfusion and obstruction likely - Continue IV normal saline - Avoid nephrotoxic agents - Repeat BMP in AM - Urology consulted for urgent cystoscopy and stone removal 5. Primary Sclerosing Cholangitis with Hepatic Cirrhosis - This is a chronic problem for this patient - Continue home medications including Benadryl for pruritis and Lactulose 6. Hypothyroidism - Continue Levothyroxine 7. Diabetes Mellitus, Type II - Continue Lantus BID - Continue SSI - Check FSBS q 6 hours for now while pt is NPO 40 minutes critical care time spent managing pts severe sepsis. GI Prophylaxis: Not indicated VTE Prophylaxis: Sub-Q Heparin (Unfractionated) VTE Mechanical Devices: Intermittant Pneumatic CD Resuscitation Status: CPR: Attempt Resuscitation Dallas Alicia MD Jan 27, 2017 11:56
[2017-01-27] MEDS ORDERED: Propofol 10,000 mCg/mL 20 mL Inj ONE (13:12)
[2017-01-27] MEDS ORDERED: fentaNYL-PF 50 mCg/mL 2 mL Inj ONE (13:12)
[2017-01-27] MEDS ORDERED: Ondansetron 2 mg/mL 2 mL Inj ONE (13:12)
[2017-01-27] MEDS ORDERED: EPHEDrine/NS 5 mg/mL 5 mL Syringe ONE (13:12)
[2017-01-27] MEDS ORDERED: CeFAZolin Inj 2 GM in IV Premix 1 EACH IV ONE (16:00)
[2017-01-27] MEDS ORDERED: Acetaminophen IV 1,000 mg IV ONE (16:00)
--- NOTE | 2017-01-27 16:05 | NUR ---
TRANSFER TO OR Patient's IV was saline locked, SCD sleeves in place. Telemetry box removed. Taken up to OR in hospital bed. Report given to TAPPER BIT.
--- NOTE | 2017-01-27 16:09 | NUR ---
Social Work-attempted assessment: Data:EMR Reviewed. Pt is a 56 y/o male who was admitted on 01/26/17 for dehyration per H&P. Pt's insurance is and PCP is Jessica Aguilar Md. EMR Reviewed. SW attempted to see pt, but pt out of room at procedure. SW to follow up with pt and discussed advanced directive. SW will continue to follow. Assessment:pt who is independent at baseline. Plan:SW to follow up tomorrow and complete assessment. SW will continue to follow. CHRISTOPHER Shin
--- NOTE | 2017-01-27 16:16 | PCM.HPANE ---
Patient Data Surgeon Admitting Provider:Estela Joiner DO Attending Provider:Estela Joiner DO Primary Care Physician:Jessica Aguilar MD Other Provider: Reason for Visit Leukocytosis Dehydration Ht/WT & BMI Height (Feet): 5 Height (Inches): 10.00 Weight (Kilograms): 69.900 Body Mass Index 22.06 Allergies Coded Allergies: No Known Allergies (Verified , 02/21/16) Past Anesthesia History Anesthesia History: Denies:: Anesthesia Reactions, Difficult Intubation, Fam Anesthesia Reaction, Fam Malignant Hypertherm, Malignant Hyperthermia Diabetes History Hx Diabetes?: Yes Current Bedside Blood Glucose: 117 MRSA MRSA: Yes (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 ago in nares, rechecked less than yr ago and neg.) Medications Active Scripts Atorvastatin (Lipitor)40 Mg Egtorz28 Mg PO HS #30 TABLET Ref 3 Prov:Kostas Pascual MD 06/11/14 Reported Medications Levothyroxine 175 Mcg Gyqzqd342 Mcg PO QAM Ref 0 01/26/17 diphenhydrAMINE HCl (Benadryl)25 Mg Yhcehaj78 Mg PO BID Ref 0 01/26/17 Cholecalciferol (Vitamin D3) (Vitamin D3)5,000 Unit Tablet5,000 Unit PO HS 01/26/17 Insulin Regular, Human (Novolin-R U100 Insulin Vial)100 Unit/1 Ml Vial12 Units SQ TIDWM #1 VIAL Ref 0 01/26/17 Insulin Glargine (Lantus U100 Solostar Insulin Pen)100 Unit/1 Ml Insuln.pen20 Unit SUBQ BID 09/30/15 Lactulose 10 Gm/15 Ml Gjmumzip16 Ml PO QAM 01/18/15 Discontinued Reported Medications Diphenhydramine Hcl (Benadryl)50 Mg Vuakezk07 Mg PO BID 01/07/16 Spironolactone 50 Mg Smukgl68 Mg PO QAM 09/30/15 Insulin Glulisine (Apidra U100 Insulin Solostar Pen)100 Unit/1 Ml Insuln.pen10- 11 Units SUBQ TIDAC 10-11 unit nutritional dose, plus additional insulin (correctional dose) for food intake (carb count). 04/29/15 Cholecalciferol (Vitamin D3) (Vitamin D3)2,000 Unit Capsule4,000 Unit PO HS 01/18/15 Discontinued Scripts Amoxicillin 500 Mg Capsule1,000 Mg PO TID #90 CAPSULE Ref 0 Prov:Deangelo Pascual MD 03/01/16 Clopidogrel 75 Mg Fefyxj74 Mg PO DAILY #30 TABLET Prov:Deangelo Pascual MD 03/01/16 Levothyroxine (Synthroid)150 Mcg Zwutct209 Mcg PO DAILYAC #30 TABLET Ref 3 Prov:Kostas Pascual MD 06/11/14 History History of ENT Problems?: No HEENT History: Denies:: Cataracts Difficult Intubation Dysphagia Glaucoma Hearing Problem Sinus Problem Other HEENT Pertinent History: hypothyroidism Hx of Heart Problems?: No Cardiovascular History: Positive for:: Cardiac Surgery (stent to RLE artery approx 1 year ago) Denies:: Atrial Fibrillation Chest Pain Congestive Heart Failure Edema Heart Murmur Hypertension Irregular Heartbeat Pacemaker Thrombophlebitis Hx of Respiratory Problem?: No Respiratory History: Positive for:: Chest Surgery (R. lung surgery secondary to infection) Dyspnea Pneumonia Denies:: Asthma COPD Emphysema Hemoptysis Tuberculosis Hx Neurologic Problems?: No Neurological History: Positive for:: Dizziness Denies:: Alzheimer's Disease CVA Dementia Headaches Parkinson's Disease Seizures Hx of GI Problems?: Yes Gastrointestinal History: Positive for:: Cirrhosis Denies:: Diverticulitis Gastroesphageal Reflux Gastrointestinal Bleeding Heartburn Hepatitis Hiatal Hernia Rectal Bleeding Other GI Pertinent History: sclerosing chonlangitis Hx of Problems?: Yes Genitourinary History: Positive for:: Urinary Tract Infection Denies:: HX of Hemodialysis Kidney Stones HX of Peritoneal Dialysis: No Male Hx: Denies:: Prostate Problems Scrotal Mass Testicular Surgery Other Skin Pertinent History: hx of necrotizing fascitis, jaundice Hx Musculoskeletal Problems?: No Musculoskeletal History: Denies:: Back Injury Joint Replacement Musculoskeletal Trauma Hx of Psycho/Social Problems?: No Psycho Social History: Denies:: Anxiety Bipolar Disorder Hx Depression Suicide Attempt Hx Surgeries?: Yes Hx Any Other Health Problems?: Yes Other History: Positive for:: Endocrine Disease Hospitalization Thyroid Disease (had thyroidectomy) Denies:: Cancer History Blood Transfusions: Positive for:: Accept Blood Products? Denies:: Blood Transfuse Reaction Blood Transfusions Hx Diabetes: YesBedside Blood Glucose: 117 Other Pertinent History: R lung abcess removal,stent to RLE Hx Alcohol Use: NoHx Substance Use: No Smoking Status: Former Smoker Have You Smoked inLast 12 mo: No Stop/Bang Treated for Sleep Apnea?: No Do You Have a CPAP Machine?: No S-Snoring: Do You Snore Loudly: No T-Tired: feel tired, fatigued: Yes O-Obsered: Observed not breath: No P-Blood Pressure: treated: No B- Body Mass Index > 35 kg/m2: No A- Age over 50: Yes N- Neck Large Circumference: No G- Gender Male: Yes KERI Total Score: 2 KERI Risk Assessment: Low Risk, <3 Yes Risk Assessment Category Category 1A: Patient has history of documented sleep apnea, and HAS NOT received any narcotic, sedative or anesthesia administration during this stay. Category 1B: Patient has history of documented sleep apnea, and HAS received any narcotic , sedative or anesthesia administration during this stay Category 2: Patient has SUSPECTED Obstructive Sleep Apnea, and HAS received any narcotic , sedative or anesthesia administration during this stay. Category 3: Patient has SUSPECTED Obstructive Sleep Apnea and HAS NOT received narcotic, sedative or anesthesia administration during this stay. Category 4: Outpatient in Procedural Areas with known sleep apnea or who screen positive for High Risk via the STOP/BANG questionnaire. Exam Exam Vital Signs Vital Signs Date Time Temp Pulse Resp B/P Pulse Ox O2 Delivery O2 Flow Rate FiO2 01/27/17 13:20 93 115/68 01/27/17 12:36 93 01/27/17 12:32 36.4 88 20 124/72 97 Room Air 01/27/17 11:22 36.8 92 16 103/60 98 Room Air 01/27/17 09:14 36.7 84 20 96/60 98 01/27/17 08:33 37.0 90 18 115/62 99 Room Air General Appearance: Alert HEENT/AIRWAY: MP 2 Lungs: Clear to Auscultation Heart: Exam Unremarkable Meds/Labs/Diagnostics Admission Meds Current Medications Sodium Chloride 1,000 ml @ 0 mls/hr Q0M ONCE IV Last administered on 20:39; Start 01/26/17 at 20:20; Stop 01/26/17 at 20:21; Status DC Piperacillin Sod/ Tazobactam Sod 3.375 gm/Dextrose/ Water 50 ml @ 150 mls/hr ONCE ONCE IV Last administered on 01/26/17 21:59; Start 01/26/17 at 21:35; Stop 01/26/17 at 21:54; Status DC Vancomycin HCl/ Sodium Chloride (Vancocin Inj/ Normal Saline) 500 ml @ 333.333 mls/hr ONCE ONCE IV Last administered on 01/26/17 22:21; Start 01/26/17 at 22 :00; Stop 01/26/17 at 23:29; Status DC Sodium Chloride (Saline Car Flush) 10 ml CAR IVFLUSH Last administered on 01:08; Start 01/27/17 at 00:30 Insulin Glargine (Lantus Insulin Inj) 15 unit BID@08,22 SUBQ Last administered on 01/27/17 08:28; Start 01/27/17 at 08:00 Insulin Human Lispro Nutritional Dose to be given pr... [facility] SUBQ Last administered on 01/27/17 08:28; Start 01/27/17 at 08:00 Sodium Chloride (Normal Saline) 1,000 ml @ 100 mls/hr Q10H IV Last administered on 01/27/17 02:40; Start 01/27/17 at 02:15 Heparin Sodium (Porcine) 5000 unit 5,000 unit Q8 SUBQ Last administered on 01/27 08:29; Start 01/27/17 at 08:30 Ceftriaxone Sodium 2000 mg/ Dextrose/Water 50 ml @ 100 mls/hr DAILY IV Last administered on 01/27/17 10:28; Start 01/27/17 at 08:40 Sodium Chloride 1,000 ml @ 0 mls/hr Q0M ONCE IV Last administered on 09:00; Start 01/27/17 at 08:40; Stop 01/27/17 at 08:43; Status DC Sodium Chloride 1,000 ml @ 150 mls/hr Q6H40M IV Last administered on 15:13; Start 01/27/17 at 08:40 Acetaminophen 1000 mg/Premix 100 ml @ 400 mls/hr OT ONCE IV Last administered on 01/27/17 15:12; Start 01/27/17 at 16:00; Stop 01/27/17 at 16:14 ; Status DC Sodium Chloride (Normal Saline) 1,000 ml @ 0 mls/hr Q0M ONCE IV Last administered on 01/27/17 12:25; Start 01/27/17 at 12:00; Stop 01/27/17 at 12:01 ; Status DC Bedside Blood Glucose: 117 Labs Test 01/26/17 19:24 01/26/17 21:00 01/27/17 05:25 01/27/17 05:50 Prothrombin Time 10.5sec (8.1-12.5) Prothromb Time International Ratio 0.98ratio Activated Partial Thromboplast Time 27.6sec (22.8-33.0) Magnesium Level 2.1mg/dL (1.6-2.6) Troponin T < 0.010ug/L (0.0-0.011) Pro-B-Type Natriuretic Peptide 954.6pg/mL (0-210) Hold Nguyen Top Tube Received (Received) Urine Color Dark yellow (YELLOW) Urine Appearance Hazy (CLEAR,HAZY) Urine pH 6.0 (5.0-8.0) Urine Specific [place] 1.010 (1.003-1.035) Urine Protein 100mg/dL (NEG,TRACE) Urine Glucose (UA) 500mg/dL (NEGATIVE) Urine Ketones Negativemg/dL (NEGATIVE) Urine Occult Blood Large (NEGATIVE) Urine Nitrite Positive (NEGATIVE) Urine Bilirubin Moderate (NEGATIVE) Urine Ictotest Positive (Negative) Urine Urobilinogen 4.0mg/dL (NORMAL) Urine Leukocyte Esterase Moderate (NEGATIVE) Urine RBC 11-50/hpf (0-2) Urine WBC 0-5/hpf (0-5) Urine Epithelial Cells None/hpf (NONE-MOD) Urine Crystals None seen (NONE SEEN) Urine Bacteria Few/hpf (NONE-FEW) Urine Hyaline Casts None/lpf (NONE) Urine Granular Casts None seen (NONE SEEN) Urine Waxy Casts None seen (NONE SEEN) Urine Red Blood Cell Casts None seen (NONE SEEN) Urine White Blood Cell Casts None seen (NONE SEEN) Urine Mucus Present (None Seen) Urine Trichomonas None seen (NONE SEEN) Urine Yeast None (NONE SEEN) Urinalysis Comment None Urine Culture Reflexed Indicated Procalcitonin 3.04ng/mL (0.00-0.08) Sodium Level 126mEq/L (134-144) Potassium Level 3.6mEq/L (3.5-5.2) Chloride Level 94mEq/L (97-108) Carbon Dioxide Level 20mmol/L (18-29) Blood Urea Nitrogen 29mg/dL (6-24) Creatinine 1.41mg/dL (0.76-1.27) Estimat Glomerular Filtration Rate 55mL/min (>59) Glucose Level 352mg/dL (60-99) Calcium Level 8.0mg/dL (8.5-10.1) Total Bilirubin 5.5mg/dL (0.0-1.2) Aspartate Amino Transf (AST/SGOT) 120U/L (0-50) Alanine Aminotransferase (ALT/SGPT) 61U/L (0-44) Alkaline Phosphatase 1093U/L (25-150) Total Protein 6.0g/dL (6.4-8.4) Albumin 2.3g/dL (3.4-5.0) Test 01/27/17 08:58 01/27/17 14:55 White Blood Count 13.7th/mm3 (3.8-10.1) Red Blood Count 3.18mil/mm3 (4.40-5.80) Hemoglobin 8.7g/dL (13.8-17.2) Hematocrit 25.4% (41.0-50.0) Mean Corpuscular Volume 79.9fL (81-100) Mean Corpuscular Hemoglobin 27.4pg (27.0-35.0) Mean Corpuscular Hemoglobin Concent 34.3% (32.0-37.0) Red Cell Distribution Width 15.1% (12.3-15.4) Platelet Count 137bil/L (150-400) Neutrophils (%) (Auto) 89.3% (40-74) Lymphocytes (%) (Auto) 4.3% (14-46) Monocytes (%) (Auto) 5.6% (4-12) Eosinophils (%) (Auto) 0.4% (0-5) Basophils (%) (Auto) 0.1% (0-3) Lactic Acid Level 0.7mmol/L (0.4-2.0) Plan Impression Patient chart reviewed, patient interviewed and anesthestic plan with risks, benefits, and alternatives discussed, and informed consent obtained. NPO Status: MN ASA Physical Status: ASA3 Severe Disease Anesthetic Plan: GA Bene/Risks/Altern/Consents: Yes HP Complete Prior to Induction: Yes Other discussed plan with patient and Dr Sandoval. Relativley short procedure, somewhat urgent given patient's clinical status. Addison Cahu MD Jan 27, 2017 16:16
[2017-01-27] MEDS ORDERED: Lactated Ringer's 1,000 ML IV ONE (16:25)
[2017-01-27] MEDS ORDERED: Lactated Ringer's 1,000 ML IV SCH (16:51)
[2017-01-27] MEDS ORDERED: Lactated Ringer's 500 ML IV PRN (16:51)
[2017-01-27] MEDS ORDERED: fentaNYL-PF 50 mCg/mL 2 mL Inj IVPUSH PRN (16:55)
[2017-01-27] MEDS ORDERED: Atropine 0.4 mg/mL Inj IVPUSH PRN (16:55)
[2017-01-27] MEDS ORDERED: Dexamethasone 4 mg/mL Inj IVPUSH PRN (16:55)
[2017-01-27] MEDS ORDERED: MetoCLOpramide 5 mg/mL 2 mL Inj IVPUSH PRN (16:55)
[2017-01-27] MEDS ORDERED: HYDROmorphone 1 mg/mL Inj IVPUSH PRN (16:55)
[2017-01-27] MEDS ORDERED: Phenylephrine 10,000 mCg/mL Inj IVPUSH PRN (16:55)
[2017-01-27] MEDS ORDERED: EPHEDrine Sulfate 50 mg/mL Inj IVPUSH PRN (16:55)
[2017-01-27] MEDS: Lactated Ringer's 1,000 ML IV SCH (17:57)
--- NOTE | 2017-01-27 18:04 | NUR ---
POST OP Patient came back to room 1022 on hospital bed. Alert and oriented x3, awake and answering all questions. States he has no pain. IV fluids running. Denies nausea/vomiting. BG 62. Gave cranberry juice and patient ordered dinner. Tele placed back onto patient.
[2017-01-27] MEDS ORDERED: Piperacillin-Tazo 3.375 Gm Inj 3.375 GM in Dextrose 5% Minibag Plus 50 ML IV SCH (18:30)
--- NOTE | 2017-01-27 18:43 | NUR ---
Positive Blood Cultures MD taylor, 4/4 blood culture bottles were positive for gram positive cocci staph.
[2017-01-27 20:07] LABS: APPEARANCE,URINE TURBID (CLEAR,HAZY); COLOR,URINE YELLOW (YELLOW); OCCULT BLOOD,URINE LARGE (NEGATIVE); PH,URINE 5.5 (5.0-8.0)
[2017-01-27] MEDS ORDERED: Ceftaroline Inj 600 MG in Dextrose 5% 250 ML IV SCH (20:30)
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
[2017-01-28] VITALS (9 sets, daily range): BP systolic 94–118; BP diastolic 55–68; PULSE 85–105; RESP 16–18; O2SAT 95–98
--- NOTE | 2017-01-28 00:13 | CONS ---
[address] [address] CONSULTATION REPORT PATIENT: MAHENDRA BENNETT : 1960 MR#: [id number] ADMIT: 01/26/2017 JOB ID: [id number] DATE OF SERVICE: REQUESTING PHYSICIAN: Hospitalist service. HISTORY OF PRESENT ILLNESS: The patient is a 56-year-old gentleman with a long and complicated history of a multitude of medical comorbidities including primary sclerosing cholangitis, orthostatic hypotension, type 2 diabetes mellitus, hypothyroidism and previous hospitalizations for infected diabetic foot ulcer, including MRSA. He had been feeling overall poorly the last two or three days consisting of dizziness, malaise and anorexia, prompting his presentation to [facility] Emergency Department late last evening. Assessment revealed a leukocytosis of 18.9, lactic acid 0.9. Urinalysis was consistent with infection and culture is pending. Significance included moderate leukocyte esterase, nitrite positive. CT KUB January 27, 2017, demonstrates a 6 mm obstructing right proximal ureteral calculus of 984 Hounsfield units with associated moderate to moderately severe hydronephrosis. There are about a dozen small calculi in both the right and left kidney measuring up to 5 mm. He denies previous history of stone disease or documented infection. ALLERGIES: No known allergies. REVIEW OF SYSTEMS: Generally: Negative other than that described over the last approximately three days, noted in the HPI. ADMISSION MEDICATIONS: 1. Spironolactone 50 mg p.o. q.a.m. 2. Levothyroxine 150 mcg p.o. daily. 3. Lactulose 10 g per 15 mL p.o. b.i.d. 4. Insulin. 5. Diphenhydramine 50 mg p.o. b.i.d. p.r.n. 6. Clopidogrel 75 mg p.o. daily. 7. Cholecalciferol 4000 units p.o. q.h.s. 8. Atorvastatin 40 mg p.o. q.h.s. 9. Amoxicillin 1000 mg p.o. t.i.d. PAST MEDICAL HISTORY: Primary sclerosing cholangitis, chronic jaundice, cirrhosis with associated thrombocytopenia and hypoalbuminemia, type 2 diabetes mellitus, hypothyroidism, orthostatic hypotension, hyperlipidemia, history of MRSA. PAST SURGICAL HISTORY: Thoracoscopy, ERCP, incision and drainage infected toe. SOCIAL HISTORY: Denies history of alcohol or substance abuse. He is a former tobacco user. PHYSICAL EXAMINATION: He is a well-developed, thin, chronically ill-appearing gentleman with mild jaundice, resting comfortably in bed. He is appropriate and well oriented. Head and neck exam: He has some excoriations on his forehead and balding area of his scalp and evidence of jaundice. JVD are unremarkable. Heart: Regular. No murmurs, rubs or extra sounds. Lungs: Clear bilaterally and equal. Abdomen: Soft, scaphoid. Bowel sounds present. No localizing tenderness. Extremities: No edema, clubbing or cyanosis. Small excoriations. He admits to chronic itch for which he uses Benadryl. LABORATORIES: As noted above in the HPI of significance. IMPRESSION: 1. A 6 mm obstructing right proximal ureteral stone. 2. Bilateral nephrolithiasis. 3. Probable urinary tract infection. PLAN: 1. Discussion, informed consent and scheduling today for cystoscopy and right ureteral stent placement. 2. Follow up pending urine and blood cultures and treat as indicated. 3. Consider reduction or elimination of supplemental calcium due to current formation of numerable renal calculi. 4. Add tamsulosin for management of bladder outlet obstruction and stent related pain. 5. Once current admission questions are answered and he is deemed medically stable, discuss and proceed to either extracorporeal shock wave lithotripsy or in situ laser lithotripsy.
[2017-01-28] MEDS: Sodium Chloride LOK Flush 10 mL Syringe IVFLUSH SCH ×3 (00:30→16:03)
[2017-01-28] MEDS: Lactated Ringer's 1,000 ML IV SCH ×3 (01:01→17:49)
[2017-01-28] MEDS: Heparin 5,000 Unit/mL Inj SUBQ SCH ×3 (01:14→17:08)
--- NOTE | 2017-01-28 05:23 | NUR ---
Antibiotix New IV abx orders - started zosyn and Teflaro. Pt reports pain when voiding- urine is strained and no stones present. Dark luther color, no clots or suspected blood. Pt infuisng NS with IV abx and LR per eMar oders when abx complete. Orthos to be completed in am. No low blood sugar. No CP, or SOB this shift. Care continues
[2017-01-28 07:04] LABS: BASOPHILS % (AUTO) 0.1 % (0-3); EOSINOPHILS % (AUTO) 1.4 % (0-5); MONOCYTES % (AUTO) 9.8 % (4-12); Mean Corpuscular Hemoglobin 27.2 pg (27.0-35.0); Mean Corpuscular Volume 81.1 fL (81-100); NEUTROPHILS % (AUTO) 82.2 % (40-74); Platelet Count 138 bil/L (150-400)
[2017-01-28] MEDS ORDERED: Piperacillin-Tazo 3.375 Gm Inj 3.375 GM in Dextrose 5% Minibag Plus 50 ML IV SCH (08:00)
[2017-01-28] MEDS: Insulin LISPRO 300 Unit/3 mL Inj SUBQ SCH ×4 (08:00→22:00)
[2017-01-28] MEDS ORDERED: 0.9% Sodium Chloride 100 ML ONE (08:26)
[2017-01-28] MEDS: Lactulose 20 Gm/30 mL 30 mL Syrup PO SCH (08:36)
[2017-01-28] MEDS: Insulin GLARgine 100 Unit/mL Syringe SUBQ SCH ×2 (08:38→22:18)
[2017-01-28] MEDS ORDERED: KCl 40 mEq/D5W 500 mL 40 MEQ in IV Premix 1 EACH IV ONE (10:25)
[2017-01-28] MEDS: Ceftaroline Inj 600 MG in Dextrose 5% 250 ML IV SCH ×2 (11:29→23:18)
--- NOTE | 2017-01-28 12:53 | PCM.PNMED ---
Subjective Date of Service Jan 28, 2017 Subjective Pt states he is feeling much better today than yesterday. He denies any fever or chills at this time. Pt has no other complaints at this time. Exam Vital Signs Vital Sign - Last Date Time Temp Pulse Resp B/P Pulse Ox O2 Delivery O2 Flow Rate FiO2 01/28/17 09:55 94/65 01/28/17 09:53 36.8 97 18 97 Room Air Intake and Output 01/27/17 01/27/17 01/28/17 Cumulative From/Thru 15:00 23:00 07:00 01/26/17 18:37 - 01/28/17 00:32 Intake Total 1537 ml 2625 ml 5057 ml Output Total 625 ml Balance 1537 ml 2625 ml 4432 ml Intake Oral 650 ml IV Total 1537 ml 2625 ml 4407 ml Output Urine Total 625 ml Exam GENERAL: NAD, Pt laying in bed comfortably HEENT: AT/NC, PERRLA, EOMI, Mucus Membranes are moist CARDIAC: RRR; No M/R/G PULM: CTAB; No wheezes or rhonchi bilaterally ABD: Soft, Nontender, Nondistended, Positive bowel sounds in all quadrants, No Hepatosplenomegaly appreciated EXT: No C/C/E; No calf tenderness bilaterally SKIN: Pt is less jaundiced than yesterday NEURO: Alert and oriented x3; Following all commands PSYCH: Normal mood and affect IVs and Medications Medications Reviewed: Medications were reviewed in detail Lab and Diagnostics Result Diagram: 01/28/17 0603 01/28/17 0603 Microbiology Blood and urine cultures, pending. X-Rays, CTs and MRIs X-RAY CHEST, TWO VIEWS IMPRESSION: 1. Small right pleural effusion versus pleural thickening. Dictated by: Ayan Sanders M.D. on 01/26/2017 at 20:51 Approved by: Ayan Sanders M.D. on 01/26/2017 at 20:52 CT BRAIN WITHOUT CONTRAST IMPRESSION: 1. No acute intracranial abnormality. 2. Bilateral white matter hypodensities likely representing [id number] chronic small vessel ischemic changes. Dictated by: Ayan Sanders M.D. on 01/26/2017 at 20:07 Approved by: Ayan Sanders M.D. on 01/26/2017 at 20:09 12-lead ECG ECG showing sinus tachycardia with rate 103, no ST elevation and unchanged from prior. Chest xray showing a small right pleural effusion vs pleural thickening. Assessment & Plan 56yoM with history of orthostatic hypotension, primary sclerosing cholangitis, DM type 2 insulin, hypothyriodism and prior infected diabetic foot ulcers ( including MRSA) who presented to the ED following a syncopal episode two days ago with the complaint of dizziness and generalized malaise. Admitted for further evaluation and management of sepsis and syncope. 1. Severe Sepsis - BP is stable - Lactate is normal - Continue to monitor BP closely - Blood cultures positive x4 - Continue IV Ceftaroline and Zosyn per ID - ID on board 2. Acute Urinary Tract Infection - Present on admission - Continue ABX as above - Secondary to obstructing stone most likely 3. Nephrolithiasis - Pt is status post right ureteral stent placement on 01/27/2017 - Dr. Sandoval with Urology managing - IV Morphine PRN for pain relief 4. Acute Kidney Injury - Secondary to renal hypoperfusion and obstruction likely - Renal function improving - Push PO fluid intake - Avoid nephrotoxic agents - Repeat BMP in AM - Urology on board 5. Primary Sclerosing Cholangitis with Hepatic Cirrhosis - This is a chronic problem for this patient - Continue home medications including Benadryl for pruritis and Lactulose 6. Hypothyroidism - Continue Levothyroxine 7. Diabetes Mellitus, Type II - Continue Lantus BID - Continue SSI - Check FSBS q AC and HS 8. Hypokalemia - Will give KCl 40 mEq IV now - Recheck BMP in AM GI Prophylaxis: Not indicated VTE Prophylaxis: Sub-Q Heparin (Unfractionated) VTE Mechanical Devices: Intermittant Pneumatic CD Resuscitation Status: CPR: Attempt Resuscitation Dallas Alicia MD Jan 28, 2017 12:52
--- NOTE | 2017-01-28 15:46 | NUR ---
Social Work-screening: Data:EMR Reviewed. Pt is a 56 y/o female who was admitted on 01/26/17 for leukocytosis per H&P. Pt's insurance is and PCP is Jessica Aguilar MD. EMR Reviewed. Pt's readmission is 4-high risk. SW met with pt to discuss discharge planning,SW role explained. Pt resides at home with his daughter where he remains independent with ADLs. Pt drives and does use any DME. Pt has no HH or SNF. 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 Pt has not completed DPOA/advanced directive, Pt does not want any paperwork at this time. Pt's family to provide transport home. No discharge needs identified. SW will continue to follow if needs arise. Assessment:Pt who is independent at baseline. Plan:Pt to discharge home when medically stable via POV. No discharge needs identified. SW will continue to follow if needs arise. CHRISTOPHER Shin
--- NOTE | 2017-01-28 16:03 | DRSVH ---
[facility] [address] [place] [address] Echocardiogram Report Name: MAHENDRA BENNETT RStudy Date: Height: 70 in Hospital Exam Location: [facility] Weight: 154 lb Gender: Male BSA: 1.9 m2 : 1960 Age: 56 yrs BP: 118/67 mmHg Reason For Study: Endocarditis Ordering Physician: Performed By: Mere Trujillo Referring Physician: Dr. Isidoro Aguilar Interpretation Summary The left ventricle is normal in size. The ejection fraction is estimated to be 60-65%. There has been no significant change in LV EF since the previous study. The right ventricle is normal size. The right ventricular systolic function is normal. No significant valvular pathology seen. No obvious valvular vegetation seen. Consider KATERYNA if clinical suspicion for endocarditis is high. Procedure: A two-dimensional transthoracic echocardiogram with color flow and Doppler was performed in limited views only. The study quality was technically adequate. Comparison is made with the echocardiogram of 05/01/15. The patient was in normal sinus rhythm during the exam. Left Ventricle: The left ventricle is normal in size. Proximal septal thickening is noted. There is no echo evidence for significant left ventricular outflow tract obstruction. There is no thrombus. The ejection fraction is estimated to be 60-65%. There has been no significant change since the previous study. There are no focal wall motion abnormalities. Spectral Doppler of the mitral valve shows a normal E/A wave ratio. Right Ventricle: The right ventricle is normal size. The right ventricular systolic function is normal. Atria: Both atria are normal in size. The interatrial septum is intact with no evidence for an atrial septal defect. Mitral Valve: The mitral valve leaflets are slightly calcified. There is no vegetation seen on the mitral valve. There is no mitral regurgitation noted. Aortic Valve: The aortic valve is trileaflet. The aortic valve opens well. There is no aortic valvular vegetation. No aortic regurgitation is present. Tricuspid Valve: The tricuspid valve is normal in structure and function. There is no tricuspid valve vegetation. No tricuspid regurgitation. Pulmonic Valve: The pulmonic valve is not well seen, but is grossly normal. There is no pulmonic valvular regurgitation. MMode/2D Measurements & Calculations LVIDd AoV Opening LV lane. diameter/BSA LV sys. diameter/BSA : 4.7 cm (cm/m^2): 2.5 (cm/m^2): 1.7 LVIDs asc Aorta Diam : 3.1 cm FS: 33.8 % EPSS : 0.3cm IVSd : 1.cm LVPWd : 0.9cm Doppler Measurements & Calculations MV E max dickson MV E/A: 1.2 MV dec time MV P1/2t max dickson : 96.5 cm/sec Med Peak E' Dickson : 0.10 sec MV A max dickson : 80.3 cm/sec E/E' med: 7.3 MVA(P1/2t): 7.2 cm2 MV P1/2t: 30.6 msecLat Peak E' Dickson E/E' lat: 6.4 E/e' average: 6.9 MV A dur: 0.09 sec Reading Physician:TATI
--- NOTE | 2017-01-28 19:30 | PROG NOTE ---
[address] [address] PROGRESS NOTE PATIENT: MAHENDRA BENNETT : 1960 MR#: [id number] ADMIT: 01/26/2017 JOB ID: [id number] DATE: 01/28/2017 REASON FOR FOLLOWUP: Bacteremic Staph aureus complicated urinary tract infection, rule out endocarditis. INTERVAL HISTORY: Overnight, the patient has felt considerably better. He has no fevers, chills, or sweats and no significant cough or chest pain. His right flank pain has essentially resolved, though he does have a bit of discomfort, a spasm occasionally, in his right flank area and he wonders if this may be due to the stent that was placed as this is a different kind of pain than he had before admission. PHYSICAL EXAMINATION: Reveals an afebrile gentleman, in no acute distress. Pulse 85, respiratory rate 16, blood pressure 118/67. He is saturating well on room air and looks quite comfortable. Eyes without conjunctival hemorrhages. Oral cavity without palatal petechia. No pharyngitis. Lungs fairly clear. Cardiac tones: 1/6 murmur heard best in the right upper sternal area. Abdomen has splenomegaly as before. No right flank tenderness is noted. LABORATORIES: Include a white count coming down a bit to 11,800, still with left shift. Creatinine 1.32. AST 87, ALT 44, alk phos 931. Keep in mind he has primary sclerosing cholangitis. These are relatively normal LFTs for him. Micro studies include 4/4 blood cultures on the growing Staph aureus. Urine is also growing Staph aureus and we await susceptibilities. IMPRESSION: This is a very complex patient who is well known to me over the past two and a half years. The patient has had four life-threatening episodes of gram-positive bacteremia with three of these being due to Staph aureus and one due to group B strep. These have all occurred secondary to soft tissue processes, however, and this seems to be a bit of a different situation in that the patient presented with flank pain and hydronephrosis due to an obstructing stone. Urine grew Staph aureus as did all of his initial four blood cultures suggesting that perhaps this is a bacteremia due to a complicated Staph aureus urinary tract infection. We must remain vigilant, however, about the possibility of endocarditis in this patient. Unfortunately, we will not be able to do a KATERYNA as the patient is known to have extensive varices and this is a relative contraindication. Instead, we will be forced to establish whether or not he may have endocarditis based on transthoracic echo as well as serial blood cultures. If it takes quite a while for blood cultures to return negative, this may increase the odds of endocarditis and lead to a prolonging of her antibiotic course. RECOMMENDATIONS: 1. Will discontinue the Zosyn today. 2. Will continue with Ceftaroline as our sole agent. I am using Ceftaroline here because it is not nephrotoxic and I would be very concerned about precipitating hepatorenal syndrome in this gradually compensated gentleman who has already had a bump in his creatinine. 3. We will narrow or change the antibiotics as indicated tomorrow when we have back susceptibilities. 4. Urologic management per Urology and Dr. Sandoval. 5. Nasal Bactroban will be applied to the nares. 6. Serial blood cultures were ordered starting today. 7. Transthoracic echo has been ordered.
[2017-01-28] MEDS: Mupirocin 2% 22 Gm Ointment NASAL SCH (20:47)
[2017-01-29] VITALS (10 sets, daily range): BP systolic 69–121; BP diastolic 31–72; PULSE 63–98; RESP 16–18; O2SAT 96–98
[2017-01-29] MEDS: Sodium Chloride LOK Flush 10 mL Syringe IVFLUSH SCH ×3 (00:30→16:30)
[2017-01-29] MEDS: Heparin 5,000 Unit/mL Inj SUBQ SCH ×3 (01:39→17:05)
[2017-01-29] MEDS: Lactated Ringer's 1,000 ML IV SCH ×3 (01:40→17:01)
[2017-01-29 06:24] LABS: BASOPHILS % (AUTO) 0.1 % (0-3); EOSINOPHILS % (AUTO) 3.2 % (0-5); MONOCYTES % (AUTO) 9.6 % (4-12); Mean Corpuscular Hemoglobin 27.1 pg (27.0-35.0); NEUTROPHILS % (AUTO) 79.7 % (40-74); Platelet Count 166 bil/L (150-400)
--- NOTE | 2017-01-29 06:31 | NUR ---
Nausea C/O sudden onset nausea immediately after am lab draws. Given IV Push anti-emetic, nausea symptoms resolved. Discussed with patient other PRN's available to him. At 2335 this shift, patient requested SCD's be removed, as they were irritating his skin. Patient made aware of possible side effects.
[2017-01-29] MEDS: Lactulose 20 Gm/30 mL 30 mL Syrup PO SCH (08:08)
[2017-01-29] MEDS: Mupirocin 2% 22 Gm Ointment NASAL SCH ×2 (08:10→21:46)
[2017-01-29] MEDS: Insulin LISPRO 300 Unit/3 mL Inj SUBQ SCH ×4 (10:18→21:49)
[2017-01-29] MEDS: Insulin GLARgine 100 Unit/mL Syringe SUBQ SCH ×2 (10:20→21:49)
[2017-01-29] MEDS ORDERED: 0.9% Sodium Chloride 1,000 ML IV ONE (11:50)
--- NOTE | 2017-01-29 11:55 | PCM.PNMED ---
Subjective Date of Service Jan 29, 2017 Subjective Pt is doing well this morning. He denies any fever. He states he is feeling better overall but is still feeling dizzy at times when he stands. Pt denies nausea and vomiting. No other complaints or concerns at this time. Exam Vital Signs Vital Sign - Last Date Time Temp Pulse Resp B/P Pulse Ox O2 Delivery O2 Flow Rate FiO2 01/29/17 08:00 94 01/29/17 07:42 69/31 01/29/17 07:35 36.9 16 97 Room Air Intake and Output 01/28/17 01/28/17 01/29/17 Cumulative From/Thru 15:00 23:00 07:00 01/26/17 18:37 - 01/29/17 06:13 Intake Total 600 ml 3701 ml 2023 ml 55249 ml Output Total 875 ml 1250 ml 690 ml 3440 ml Balance -275 ml 2451 ml 1333 ml 7941 ml Intake Oral 600 ml 840 ml 500 ml 2590 ml IV Total 2861 ml 1523 ml 8791 ml Output Urine Total 875 ml 1250 ml 690 ml 3440 ml # Voids 3 3 # Bowel Movements 0 0 0 Exam GENERAL: NAD, Pt laying in bed comfortably HEENT: AT/NC, PERRLA, EOMI, Mucus Membranes are moist CARDIAC: RRR; No M/R/G PULM: CTAB; No wheezes or rhonchi bilaterally ABD: Soft, Nontender, Nondistended, Positive bowel sounds in all quadrants, No Hepatosplenomegaly appreciated EXT: No C/C/E; No calf tenderness bilaterally NEURO: Alert and oriented x3; Following all commands PSYCH: Normal mood and affect IVs and Medications Medications Reviewed: Medications were reviewed in detail Lab and Diagnostics Result Diagram: 01/29/17 0540 01/29/1740 Microbiology Blood and urine cultures, pending. X-Rays, CTs and MRIs X-RAY CHEST, TWO VIEWS IMPRESSION: 1. Small right pleural effusion versus pleural thickening. Dictated by: Ayan Sanders M.D. on 01/26/2017 at 20:51 Approved by: Ayan Sanders M.D. on 01/26/2017 at 20:52 CT BRAIN WITHOUT CONTRAST IMPRESSION: 1. No acute intracranial abnormality. 2. Bilateral white matter hypodensities likely representing [id number] chronic small vessel ischemic changes. Dictated by: Ayan Sanders M.D. on 01/26/2017 at 20:07 Approved by: Ayan Sanders M.D. on 01/26/2017 at 20:09 12-lead ECG ECG showing sinus tachycardia with rate 103, no ST elevation and unchanged from prior. Chest xray showing a small right pleural effusion vs pleural thickening. Assessment & Plan 56yoM with history of orthostatic hypotension, primary sclerosing cholangitis, DM type 2 insulin, hypothyriodism and prior infected diabetic foot ulcers ( including MRSA) who presented to the ED following a syncopal episode two days ago with the complaint of dizziness and generalized malaise. Admitted for further evaluation and management of sepsis and syncope. 1. Severe Sepsis - BP is stable at present - Lactate is normal - Continue to monitor BP closely - Blood cultures positive x4 for Staph Aureus - Continue IV Ceftaroline for now, however this can probably be narrowed today - ID on board - Procalcitonin is 1.00 today 2. Acute Urinary Tract Infection - Present on admission - Continue ABX as above - Secondary to obstructing stone most likely 3. Nephrolithiasis - Pt is status post right ureteral stent placement on 01/27/2017 - Dr. Sandoval with Urology managing - IV Morphine PRN for pain relief 4. Acute Kidney Injury - Secondary to renal hypoperfusion and obstruction likely - Renal function much improved - Continue to push PO fluid intake - Avoid nephrotoxic agents - Repeat BMP in AM - Urology on board 5. Primary Sclerosing Cholangitis with Hepatic Cirrhosis - This is a chronic problem for this patient - Continue home medications including Benadryl for pruritis and Lactulose 6. Hypothyroidism - Continue Levothyroxine 7. Diabetes Mellitus, Type II - Continue Lantus BID - Continue SSI - Continue to check FSBS q AC and HS 8. Hypokalemia - Resolved - Pt was given KCl 40 mEq IV on - Recheck BMP in AM GI Prophylaxis: Not indicated VTE Prophylaxis: Sub-Q Heparin (Unfractionated) VTE Mechanical Devices: Intermittant Pneumatic CD Resuscitation Status: CPR: Attempt Resuscitation Dallas Alicia MD Jan 29, 2017 11:54
[2017-01-29] MEDS: Ceftaroline Inj 600 MG in Dextrose 5% 250 ML IV SCH (12:24)
--- NOTE | 2017-01-29 17:57 | NUR ---
BG/appetite BG checked this a.m. at 0735. BG of 53. Mccurtain juice administered and BG rechecked 15 min later. It had gone up to 84. At this point, breakfast had come. Pt. was able to eat a banana and corn flakes. Lantus administered after pt had had breakfast Pt. c/o bloating/loss of appetite/nausea. He does not want any antiemetic, stating "it doesnt work". Did not eat any lunch today. BG stable. (139 and 115 at dinner). I brought him some jello and chicken broth, and he was able to tolerate that.
[2017-01-29] MEDS: CeFAZolin Inj 2 GM in IV Premix 1 EACH IV SCH (18:34)
--- NOTE | 2017-01-29 22:27 | PROG NOTE ---
[address] [address] PROGRESS NOTE PATIENT: MAHENDRA BENNETT : 1960 MR#: [id number] ADMIT: 01/26/2017 JOB ID: [id number] DATE: 01/29/2017 REASON FOR FOLLOWUP: High-grade MSSA bacteremia in a patient with underlying cirrhosis due to primary sclerosing cholangitis. INTERVAL HISTORY: Overnight, the patient has noticed that he has a poor appetite, and his abdomen seems a bit distended. 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 The patient has had no significant fever, chills overnight, no cough; but he does feel quite tired. He has pruritus is quiescent at this point. PHYSICAL EXAMINATION: Physical exam reveals an afebrile gentleman, temp 36.9, pulse 67, respiratory rate 18, blood pressure 111/63. He is saturating well on room air. Examination of the skin reveals the hyperpigmentation which is longstanding and no change. Eyes without conjunctival hemorrhage. Oral cavity relatively benign. Lungs clear. Cardiac tones without new murmur. Abdomen is slightly distended, though I am not certain if there is ascites or not. He does have a palpable spleen tip. DATA: Labs include white count 11,500, platelet count 166, 80% segs, creatinine is 1.15. Alk phos is 862. Procalcitonin is 1, and that is down from 4.3 on admission. Urinalysis had over 50 white cells, and recall that the urine as well as multiple blood cultures from the 10th grew Staph aureus, which turns out to be an MSSA with very good susceptibilities to oxacillin and all standard agents. 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 He now also has evidence of very high-grade methicillin-sensitive Staphylococcus aureus bacteremia. It is difficult to exclude the possibility of endocarditis in this patient as we are not going to be able to do a transesophageal echo given his extensive varices due to his cirrhosis. A transthoracic echo failed to show any vegetations, but of course, this is not a very sensitive test. It is likely we will need to treat the patient for at least four weeks given the high-grade nature of the staphylococcal bacteremia. RECOMMENDATIONS: 1. We can switch the antibiotics from ceftaroline to cefazolin 2 gm IV q.8. 2. The exact antibiotic we will use when the patient is ready for discharge will be dependent on his discharge plans [facility]
[2017-01-30] VITALS (9 sets, daily range): BP systolic 94–154; BP diastolic 54–81; PULSE 80–91; RESP 16–18; O2SAT 95–99
[2017-01-30] MEDS: Sodium Chloride LOK Flush 10 mL Syringe IVFLUSH SCH ×4 (00:30→23:08)
[2017-01-30] MEDS: Lactated Ringer's 1,000 ML IV SCH ×3 (01:41→16:36)
[2017-01-30] MEDS: Heparin 5,000 Unit/mL Inj SUBQ SCH ×4 (01:41→23:13)
--- NOTE | 2017-01-30 02:27 | NUR ---
BG BG 122 @ HS. Previous evening HS 123 BG 53 in am. Patient stated that "at home I would take half the dose". Partial dose (7 units) administered per patient request. Charge nurse informed prior to partial dose administration.
[2017-01-30] MEDS: CeFAZolin Inj 2 GM in IV Premix 1 EACH IV SCH ×3 (02:31→19:36)
[2017-01-30 06:08] LABS: BASOPHILS % (AUTO) 0.2 % (0-3); EOSINOPHILS % (AUTO) 2.4 % (0-5); MONOCYTES % (AUTO) 9.7 % (4-12); Mean Corpuscular Hemoglobin 27.1 pg (27.0-35.0); Mean Corpuscular Volume 81.9 fL (81-100); NEUTROPHILS % (AUTO) 75.8 % (40-74); Platelet Count 191 bil/L (150-400)
[2017-01-30] MEDS: Insulin LISPRO 300 Unit/3 mL Inj SUBQ SCH ×4 (08:00→23:06)
[2017-01-30] MEDS: Insulin GLARgine 100 Unit/mL Syringe SUBQ SCH ×2 (08:00→23:08)
[2017-01-30] MEDS: Lactulose 20 Gm/30 mL 30 mL Syrup PO SCH (08:04)
[2017-01-30] MEDS: Mupirocin 2% 22 Gm Ointment NASAL SCH ×2 (09:10→19:30)
--- NOTE | 2017-01-30 14:59 | NUR ---
NUTRITION ASSESSMENT: ASSESS: 56YO M admit with hydronephrosis,bacteremia on antibiotics--infectious disease following. WILLAM,UTI,Sepsis. PMHX: Cirrhosis,DMII, DIET: Diabetic. PO 25-75% LABS: Alb 2.0, Glu 46, Alk Phos 902 MEDS: Insulin GI: No BM. Pt reports bloated feeling 01/30 WEIGHT: 72.7kg; Admit 69.6 BMI: 23.0 EST.NEEDS: LIVER DISEASE (30-35kcal/kg;1.2-1.5g/kg admit) Kcal; 2778-9930 Pro: 85-105g NUTRITION DIAGNOSIS: (1) Increased energy needs related to increased demand for nutrients as evidenced by cirrhosis. INTERVENTION: (1) Supplements added on trays. MONITOR/EVALUATE: PO intake, labs, weight, GI. F/U per moderate risk. Addendum: 01/30/17 at [address] Spoke with pt who reports poor appetite with solids. Will add glucerna (chocolate per pt preference) to all meal trays
--- NOTE | 2017-01-30 15:41 | PROG NOTE ---
[address] [address] PROGRESS NOTE PATIENT: MAHENDRA BENNETT : 1960 MR#: [id number] ADMIT: 01/26/2017 JOB ID: [id number] DATE: 01/30/2017 REASON FOR FOLLOWUP: High-grade MSSA bacteremia with ureteral obstruction which has now been stented. INTERVAL HISTORY: Overnight, the patient has felt somewhat weak and lethargic. He also notes some orthostatic hypotension and there have been issues with borderline low blood pressures over the past 24 hours. The patient has had no fevers or chills. He denies significant headache. He denies sore throat, cough, or shortness of breath. PHYSICAL EXAMINATION: Reveals an afebrile gentleman, temperature 36.7, pulse 89, respiratory rate 16, blood pressure 94/60 right now which is his lowest really since admission. The patient is, however, in no acute distress. She looks a bit tired and is jaundiced, as he is typically. Oral cavity with mild erythema on the left posterior pharynx which is asymptomatic. Lungs reasonably clear. Cardiac tones without new murmur. Abdomen with splenomegaly but no clear-cut ascites. He does have scleral icterus. LABORATORIES: Include a white count 11,200, creatinine 1.03. Alk phos continues to be around 900 and AST around 82, which are typical values for him. Micro studies include the multiple blood cultures positive for MSSA on January 26, which was associated with the positive urine cultures for MSSA. Followup blood cultures from the remain negative. The cardiac echo was transthoracic. Did not show any valvular vegetations. We are unable to do a KATERYNA because the patient has extensive varices. IMPRESSION: This patient with cirrhosis, splenomegaly due to primary sclerosing cholangitis, presents with yet another serious staphylococcal infection. The twist is here that this it is not apparently related to skin and soft tissue but rather appears to be a urinary source of his MSSA high-grade bacteremia. By clinical exam and transthoracic echo there is no endocarditis but of course it is difficult to know without a transesophageal echo. Today, the patient seems to be doing fairly well though he does have some borderline blood pressures and some orthostatic complaints. Additionally he still feels very fatigued and has an relative an improving but ongoing leukocytosis. RECOMMENDATIONS: 1. I would consider keeping the patient through the weekend with probable discharge on January 02. 2. Will continue with Ancef 2 g q.8 h. until then. 3. On Thursday, if he looks well and followup blood cultures remain negative will place a midline catheter with a plan to use ceftriaxone 2 g a day through about February 10. At that time, if all looks well, will give the patient a single dose of outpatient dalbavancin and conclude that we finished roughly four weeks of therapy with the dalbavancin.
--- NOTE | 2017-01-30 18:56 | NUR ---
ACTIVITY Patient denies pain. Poor appetite. Tolerating liquids PO and his diet well. Denies nausea. No emesis noted. Denies SOB. Patient has been able to get OOB and sat at the bedside. Tolerated activity. Denies dizziness/lightheadedness. Patient is on remote tele. Per public safety telecommunicator patient is on sinus rhythm; HR-80's. Using his call light appropriately. Voiding without any problems.
--- NOTE | 2017-01-30 21:32 | PCM.PNMED ---
Subjective Date of Service Jan 30, 2017 Subjective The patient has no new complaints. He is beginning to feel better. He has no fever, no chills, no diaphoresis. He has no nausea, no vomiting and no diarrhea. Exam Vital Signs Vital Sign - Last Date Time Temp Pulse Resp B/P Pulse Ox O2 Delivery O2 Flow Rate FiO2 01/30/17 20:25 36.8 87 16 138/81 97 Room Air Intake and Output 01/29/17 01/29/17 01/30/17 Cumulative From/Thru 15:00 23:00 07:00 01/26/17 18:37 - 01/30/17 06:43 Intake Total 4816 ml 2056 ml 01776 ml Output Total 2037 ml 1860 ml 7337 ml Balance 2779 ml 196 ml 85702 ml Intake Oral 2206 ml 600 ml 5396 ml IV Total 2610 ml 1456 ml 34396 ml Output Urine Total 2037 ml 1860 ml 7337 ml # Voids 3 # Bowel Movements 0 0 Exam General: Patient is in no apparent distress lying supine in bed. HEENT: Head is atraumatic and normocephalic. Eyes: Pupils are equally round and reactive to light and accommodation. Extraocular muscles are intact. Sclera are white, anicteric. Subconjunctival mucosa is pink. Ears and nose are unremarkable. Oropharynx: There is no mucosal lesions, there is no thrush, there is no pharyngitis. Neck: Is supple, there are no nodes, or masses or tenderness. Chest: Is clear to auscultation and percussion. There are no rales, rhonchi, wheezes or rubs. Heart: Rate, rhythm is regular. There is no murmur, rub or gallop. Abdomen: Good bowel sounds are present. Abdomen is soft, nontender, no organomegaly or masses were appreciated. Extremities: Are symmetrical and well perfused. There is no edema, there is no cellulitis, no rash. Neurologic: There are no focal neurological deficits. Cranial nerves II through XII are intact. There are no sensory or motor deficits. Psychiatric: Patients mood is calm and shows no sign of agitation. Genital: Deferred Rectal: Deferred Lab and Diagnostics Result Diagram: 01/30/17 0540 01/30/17 0540 Microbiology Blood and urine cultures, pending. X-Rays, CTs and MRIs X-RAY CHEST, TWO VIEWS IMPRESSION: 1. Small right pleural effusion versus pleural thickening. Dictated by: Ayan Sanders M.D. on 01/26/2017 at 20:51 Approved by: Ayan Sanders M.D. on 01/26/2017 at 20:52 CT BRAIN WITHOUT CONTRAST IMPRESSION: 1. No acute intracranial abnormality. 2. Bilateral white matter hypodensities likely representing [id number] chronic small vessel ischemic changes. Dictated by: Ayan Sanders M.D. on 01/26/2017 at 20:07 Approved by: Ayan Sanders M.D. on 01/26/2017 at 20:09 12-lead ECG ECG showing sinus tachycardia with rate 103, no ST elevation and unchanged from prior. Chest xray showing a small right pleural effusion vs pleural thickening. Cardiac Echo Impressions Echocardiogram Report Name: MAHENDRA BENNETT RStudy Date: Height: 70 in Hospital Exam Location: [facility] Weight: 154 lb Gender: Male BSA: 1.9 m2 : 1960 Age: 56 yrs BP: 118/67 mmHg Reason For Study: Endocarditis Ordering Physician: Performed By: Mere Trujillo Referring Physician: Dr. Isidoro Aguilar Interpretation Summary The left ventricle is normal in size. The ejection fraction is estimated to be 60-65%. There has been no significant change in LV EF since the previous study. The right ventricle is normal size. The right ventricular systolic function is normal. No significant valvular pathology seen. No obvious valvular vegetation seen. Consider KATERYNA if clinical suspicion for endocarditis is high. Assessment & Plan The patient is a 56-year-old white male with history of orthostatic hypotension , primary sclerosing cholangitis, DM type 2 insulin, hypothyriodism and prior infected diabetic foot ulcers (including MRSA) who presented to the ED following a syncopal episode two days prior to admission with the complaint of dizziness and generalized malaise. The patient was admitted to the hospitalist service for further evaluation and management of sepsis and syncope. 1. Severe Sepsis - BP is stable at present - Lactate is normal - Continue to monitor BP closely - Blood cultures positive x4 for Staph aureus which is a Methicillin Sensitive Staph aureus - Continue IV Ancef for now. - Dr. Capps of infectious disease has been consulted and appreciate his consultation and recommendations will follow his recommendations. - Procalcitonin has improved 2. Acute Urinary Tract Infection with Methicillin Sensitive Staph aureus. - Present on admission - Continue Ancef as above - Most likely secondary to obstructing stone. 3. Nephrolithiasis - Pt is status post right ureteral stent placement on 01/27/2017 - Dr. Sandoval with Urology managing - IV Morphine PRN for pain relief 4. Acute Kidney Injury - Secondary to renal hypoperfusion and obstruction likely - Renal function much improved - Continue to push PO fluid intake - Avoid nephrotoxic agents - Repeat BMP in AM - Urology on board 5. Primary Sclerosing Cholangitis with Hepatic Cirrhosis - This is a chronic problem for this patient - Continue home medications including Benadryl for pruritis and Lactulose 6. Hypothyroidism - Continue Levothyroxine 7. Diabetes Mellitus, Type II - Continue Lantus BID - Continue SSI coverage - Continue to check Accu-Cheks q AC and HS 8. Hypokalemia, present on admission. Improved - Pt was given KCl 40 mEq IV on - Recheck BMP in AM Disposition: Patient will continue on IV Ancef throughout the weekend. Plan for midline placement next week followed by IV antibiotics as outlined by Dr. Capps. Pain Evaluation: Adequate Pain Control GI Prophylaxis: Not indicated VTE Prophylaxis: Sub-Q Heparin (Unfractionated) VTE Mechanical Devices: Intermittant Pneumatic CD Resuscitation Status: CPR: Attempt Resuscitation AtascosaLokesh MD Jan 30, 2017 21:32
[2017-01-31] VITALS (14 sets, daily range): BP systolic 78–130; BP diastolic 36–78; PULSE 85–95; RESP 16–19; O2SAT 96–97
[2017-01-31] MEDS: Lactated Ringer's 1,000 ML IV SCH ×3 (01:05→17:45)
[2017-01-31] MEDS: CeFAZolin Inj 2 GM in IV Premix 1 EACH IV SCH ×3 (03:15→17:45)
--- NOTE | 2017-01-31 03:23 | NUR ---
Assumed Patient Care Assumed patient care at 0130. Per report patient has been sleeping well, and has no complaints at this time. Introduced self to patient, Denies CP, SOB or any other complaints at this time. Will continue to monitor, and continue Q1 hour checks.
--- NOTE | 2017-01-31 06:24 | NUR ---
Ortho BPs Lying 130/78 HR 90 Sitting 100/57 HR 95 Standing 81/36 HR 92 Patient would not allow aid to assist him with sitting up or standing. He would abruptly transition self from each position, despite being educated on being cautious so that he would not become dizzy. Patient was very agitated. Denies any light headedness or dizziness throughout this entire assessment. Care continues.
[2017-01-31 07:32] LABS: BASOPHILS % (AUTO) 0.2 % (0-3); MONOCYTES % (AUTO) 10.1 % (4-12); Mean Corpuscular Hemoglobin 27.2 pg (27.0-35.0); Mean Corpuscular Volume 81.7 fL (81-100); NEUTROPHILS % (AUTO) 74.6 % (40-74); Platelet Count 208 bil/L (150-400)
[2017-01-31] MEDS: Insulin LISPRO 300 Unit/3 mL Inj SUBQ SCH ×4 (07:58→22:00)
[2017-01-31] MEDS: Sodium Chloride LOK Flush 10 mL Syringe IVFLUSH SCH ×2 (08:26→16:30)
[2017-01-31] MEDS: Lactulose 20 Gm/30 mL 30 mL Syrup PO SCH (08:29)
[2017-01-31] MEDS: Heparin 5,000 Unit/mL Inj SUBQ SCH ×2 (08:31→17:47)
[2017-01-31] MEDS: Insulin GLARgine 100 Unit/mL Syringe SUBQ SCH ×2 (08:32→22:00)
[2017-01-31] MEDS: Mupirocin 2% 22 Gm Ointment NASAL SCH ×2 (08:33→20:26)
--- NOTE | 2017-01-31 13:52 | PCM.PNMED ---
Subjective Date of Service Jan 31, 2017 Subjective Patient seen and examined at bedside. No new complaints, significant overnight events. Afebrile Exam Vital Signs Vital Sign - Last Date Time Temp Pulse Resp B/P Pulse Ox O2 Delivery O2 Flow Rate FiO2 01/31/17 10:56 93 01/31/17 10:00 78/53 01/31/17 09:50 36.7 19 97 Room Air Intake and Output 01/30/17 01/30/17 01/31/17 Cumulative From/Thru 15:00 23:00 07:00 01/26/17 18:37 - 01/31/17 06:05 Intake Total 1020 ml 1722 ml 78039 ml Output Total 1400 ml 1100 ml 9837 ml Balance -380 ml 622 ml 81964 ml Intake Oral 1020 ml 700 ml 7116 ml IV Total 1022 ml 08908 ml Output Urine Total 1400 ml 1100 ml 9837 ml # Voids 3 # Bowel Movements 0 0 Exam General: Chronically ill-appearing, No acute distress. In bed comfortably HEENT: PERRL . Sclerae is anicteric Mouth : Moist oropharyngeal mucosa. No oral thrush Neck: supple, trachea is midline , no JVD Chest:clear to auscultation bilaterally . No crackles, no wheezing. Heart: S1, S2 regular Rate, rhythm is regular. There is no murmur, rub or gallop. Abdomen: Soft, non-tender, non-distended. Normal bowel sounds on quadrant Extremities: No edema, no cyanosis Neurologic: Grossly non focal IVs and Medications Medications Reviewed: Medications were reviewed in detail Lab and Diagnostics Result Diagram: 01/31/1762201/31/17622 Microbiology Blood and urine cultures, pending. X-Rays, CTs and MRIs X-RAY CHEST, TWO VIEWS IMPRESSION: 1. Small right pleural effusion versus pleural thickening. Dictated by: Ayan Sanders M.D. on 01/26/2017 at 20:51 Approved by: Ayan Sanders M.D. on 01/26/2017 at 20:52 CT BRAIN WITHOUT CONTRAST IMPRESSION: 1. No acute intracranial abnormality. 2. Bilateral white matter hypodensities likely representing [id number] chronic small vessel ischemic changes. Dictated by: Ayan Sanders M.D. on 01/26/2017 at 20:07 Approved by: Ayan Sanders M.D. on 01/26/2017 at 20:09 12-lead ECG ECG showing sinus tachycardia with rate 103, no ST elevation and unchanged from prior. Chest xray showing a small right pleural effusion vs pleural thickening. Cardiac Echo Impressions Echocardiogram Report Name: MAHENDRA BENNETT RStudy Date: Height: 70 in Hospital Exam Location: [facility] Weight: 154 lb Gender: Male BSA: 1.9 m2 : 1960 Age: 56 yrs BP: 118/67 mmHg Reason For Study: Endocarditis Ordering Physician: Performed By: Mere Trujillo Referring Physician: Dr. Isidoro Aguilar Interpretation Summary The left ventricle is normal in size. The ejection fraction is estimated to be 60-65%. There has been no significant change in LV EF since the previous study. The right ventricle is normal size. The right ventricular systolic function is normal. No significant valvular pathology seen. No obvious valvular vegetation seen. Consider KATERYNA if clinical suspicion for endocarditis is high. Assessment & Plan The patient is a 56-year-old white male with history of orthostatic hypotension , primary sclerosing cholangitis, DM type 2 insulin, hypothyriodism and prior infected diabetic foot ulcers (including MRSA) who presented to the ED following a syncopal episode two days prior to admission with the complaint of dizziness and generalized malaise. The patient was admitted to the hospitalist service for further evaluation and management of sepsis and syncope. 1. Severe Sepsis - Blood cultures positive x4 for high-grade Staph aureus - Continue IV Ancef for now. - Procalcitonin has improved. - 2. Acute Urinary Tract Infection with Methicillin Sensitive Staph aureus. - Present on admission - Continue Ancef as above - Most likely secondary to obstructing stone -ID following : re-culture pending. Possibly Ancef until February 10 on Dalbavancin x one dose prior discharge 3. Nephrolithiasis - Pt is status post right ureteral stent placement on 01/27/2017 - Renal function improved 4. Acute Kidney Injury - Secondary to renal hypoperfusion and obstruction likely - Renal function back to baseline - Avoid nephrotoxic agents. Continue to monitor renal function and electrolytes 5. Primary Sclerosing Cholangitis with Hepatic Cirrhosis - This is a chronic problem for this patient - Continue home medications including Benadryl for pruritis and Lactulose 6. Hypothyroidism - ON Levothyroxine 7. Diabetes Mellitus, Type II - Continue Lantus BID - Continue SSI coverage - Continue to check Accu-Cheks q AC and HS 8. Hypokalemia, present on admission. Improved - Pt was given KCl 40 mEq IV on - Recheck BMP in AM Disposition: Patient will continue on IV Ancef throughout the weekend PROBABLY UNTIL 02/10. Plan for midline placement next week followed by IV antibiotics as outlined by Dr. Capps. GI Prophylaxis: Not indicated VTE Prophylaxis: Sub-Q Heparin (Unfractionated) VTE Mechanical Devices: Intermittant Pneumatic CD Resuscitation Status: CPR: Attempt Resuscitation Time spent 25 minutes Abran Samuels MD Jan 31, 2017 13:52
--- NOTE | 2017-01-31 15:52 | NUR ---
Postural hypotension Pt's orthos checked at 1000 and 1500. Pt had postural hypotension both times. Pt c/o a little dizziness with standing, although he was steady on his feet. Hospitalist aware.
[2017-01-31] MEDS: Polyethylene Glycol (PEG) 17 Gm Powder PO PRN (17:55)
--- NOTE | 2017-01-31 17:58 | NUR ---
Bowel medications Pt received lactulose and trena this AM but has not had a BM. Pt's stomach is distended and pt says he feels uncomfortable. Last BM was yesterday (small), Bt's are active. Pt agreed to take prune juice and eventually agreed to take Miralax. Pt does not want to take Senna at this time. Will continue to monitor.
[2017-02-01] VITALS (13 sets, daily range): BP systolic 72–116; BP diastolic 61–72; PULSE 59–95; RESP 16–21; O2SAT 96–98
[2017-02-01] MEDS: Sodium Chloride LOK Flush 10 mL Syringe IVFLUSH SCH ×3 (00:30→16:30)
[2017-02-01] MEDS: Heparin 5,000 Unit/mL Inj SUBQ SCH ×3 (00:38→16:35)
[2017-02-01] MEDS: Lactated Ringer's 1,000 ML IV SCH (01:01)
[2017-02-01] MEDS: CeFAZolin Inj 2 GM in IV Premix 1 EACH IV SCH ×3 (02:08→18:06)
--- NOTE | 2017-02-01 05:34 | NUR ---
GI Overnight abdominal cramping. Receiving lactalose, trena and miralax. Passing flatus no stool. Denies nausea but reports he ate no dinner last night. Hospitalist informed of Blood sugar at HS (133) and order received to hold Lantus for the night. Wanting only to sleep tonight and limited interruptions, appears withdrawn.
[2017-02-01] MEDS: Insulin LISPRO 300 Unit/3 mL Inj SUBQ SCH ×4 (08:00→22:00)
[2017-02-01] MEDS: Insulin GLARgine 100 Unit/mL Syringe SUBQ SCH ×2 (08:00→22:00)
[2017-02-01] MEDS: Polyethylene Glycol (PEG) 17 Gm Powder PO PRN (08:18)
[2017-02-01] MEDS: Lactulose 20 Gm/30 mL 30 mL Syrup PO SCH (08:20)
[2017-02-01] MEDS: 0.9% Sodium Chloride 1,000 ML IV SCH ×2 (08:20→23:19)
[2017-02-01] MEDS: Mupirocin 2% 22 Gm Ointment NASAL SCH ×2 (08:25→20:30)
--- NOTE | 2017-02-01 11:07 | PCM.PNMED ---
Subjective Date of Service Feb 01, 2017 Subjective Patient seen and examined at bedside. Blood pressure in the low side with systolic around 90-100 with orthostatics hypotension. He denied chest pain, shortness of breath, lightheadedness, dizziness. Afebrile Exam Vital Signs Vital Sign - Last Date Time Temp Pulse Resp B/P Pulse Ox O2 Delivery O2 Flow Rate FiO2 02/01/17 10:24 89 02/01/17 08:28 36.8 20 108/62 97 Room Air Intake and Output 01/31/17 01/31/17 02/01/17 Cumulative From/Thru 15:00 23:00 07:00 01/26/17 18:37 - 02/01/17 06:50 Intake Total 2459 ml 2019 ml 36798 ml Output Total 1200 ml 1500 ml 37645 ml Balance 1259 ml 519 ml 78473 ml Intake Oral 1036 ml 636 ml 8788 ml IV Total 1423 ml 1383 ml 35787 ml Output Urine Total 1200 ml 1500 ml 07024 ml # Voids 3 # Bowel Movements 0 0 Exam General: Chronically ill-appearing, . In bed comfortably, pleasant teric Mouth : Moist oropharyngeal mucosa. No oral thrush Neck: supple, trachea is midline , no JVD, no cervical lymphadenopathy Chest:clear to auscultation bilaterally . No crackles, no wheezing. Heart: S1, S2 regular Rate, rhythm is regular. There is no murmur, rub or gallop. Abdomen: Soft, non-tender, non-distended. Normal bowel sounds on quadrant Extremities: No edema, no cyanosis, no calf tenderness Neurologic: AAO x 3 , Grossly non focal IVs and Medications Medications Reviewed: Medications were reviewed in detail Lab and Diagnostics Result Diagram: 01/31/17 0623 02/01/17 0555 Microbiology Blood and urine cultures, pending. X-Rays, CTs and MRIs X-RAY CHEST, TWO VIEWS IMPRESSION: 1. Small right pleural effusion versus pleural thickening. Dictated by: Ayan Sanders M.D. on 01/26/2017 at 20:51 Approved by: Ayan Sanders M.D. on 01/26/2017 at 20:52 CT BRAIN WITHOUT CONTRAST IMPRESSION: 1. No acute intracranial abnormality. 2. Bilateral white matter hypodensities likely representing [id number] chronic small vessel ischemic changes. Dictated by: Ayan Sanders M.D. on 01/26/2017 at 20:07 Approved by: Ayan Sanders M.D. on 01/26/2017 at 20:09 12-lead ECG ECG showing sinus tachycardia with rate 103, no ST elevation and unchanged from prior. Chest xray showing a small right pleural effusion vs pleural thickening. Cardiac Echo Impressions Echocardiogram Report Name: MAHENDRA BENNETT RStudy Date: Height: 70 in Hospital Exam Location: [facility] Weight: 154 lb Gender: Male BSA: 1.9 m2 : 1960 Age: 56 yrs BP: 118/67 mmHg Reason For Study: Endocarditis Ordering Physician: Performed By: Mere Trujillo Referring Physician: Dr. Isidoro Aguilar Interpretation Summary The left ventricle is normal in size. The ejection fraction is estimated to be 60-65%. There has been no significant change in LV EF since the previous study. The right ventricle is normal size. The right ventricular systolic function is normal. No significant valvular pathology seen. No obvious valvular vegetation seen. Consider KATERYNA if clinical suspicion for endocarditis is high. Assessment & Plan The patient is a 56-year-old white male with history of orthostatic hypotension , primary sclerosing cholangitis, DM type 2 insulin, hypothyriodism and prior infected diabetic foot ulcers (including MRSA) who presented to the ED following a syncopal episode two days prior to admission with the complaint of dizziness and generalized malaise. The patient was admitted to the hospitalist service for further evaluation and management of sepsis and syncope. 1. Severe Sepsis - Blood cultures positive x4 for high-grade Staph aureus - Continue IV Ancef for now. -Afebrile endocrine antibiotics - 2. Acute Urinary Tract Infection with Methicillin Sensitive Staph aureus. - Present on admission - Continue Ancef as above stone -ID following : re-culture negative to date. Possibly Ancef until February 10 on Dalbavancin x one dose prior discharge 3. Nephrolithiasis - Pt is status post right ureteral stent placement on 01/27/2017 - Renal function improved 4. Acute Kidney Injury - Secondary to renal hypoperfusion and obstruction likely - Renal function back to baseline - Avoid nephrotoxic agents. Continue to monitor renal function and electrolytes 5. Primary Sclerosing Cholangitis with Hepatic Cirrhosis - This is a chronic problem for this patient - Continue home medications including Benadryl for pruritis and Lactulose 6. Hypothyroidism - ON Levothyroxine 7. Diabetes Mellitus, Type II - Continue Lantus BID - Continue SSI coverage - Continue to check Accu-Cheks q AC and HS 8. Hypokalemia, present on admission. Improved - Pt was given KCl 40 mEq IV on - Recheck BMP in AM 9. Hypotension : This is a chronic issue and is associated with orthostatic hypotension Start the trial of Meclizine 2.5 mg 3 times a day Patient is clinically and hemodynamically stable. Monotor BP and see how he respond to Meclizine trial for chronic hypotention ID follow up. Discharge planning GI Prophylaxis: Not indicated VTE Prophylaxis: Sub-Q Heparin (Unfractionated) VTE Mechanical Devices: Intermittant Pneumatic CD Resuscitation Status: CPR: Attempt Resuscitation Time spent 25 minutes Abran Samuels MD Feb 01, 2017 11:07
--- NOTE | 2017-02-01 12:03 | NUR ---
BS/GI BS this morning-61. Breakfast given to the patient and Lantus held at this time. Dr. Samuels made aware. Rechecked BS-126. Miralax, Senna and Colace was given to the patient for complaints of abdominal cramping d/to no BM for 4 days. Patient was able to have a large, formed BM after. Patient stated that his abdomen feels a little better. He denies nausea. No emesis noted. Denies SOB. Patient has been transferring independently to the [facility] [place]. Denies dizziness/lightheadedness. Midrodrine started. Will continue to monitor BP. Patient is on tele. Per cable television line technician patient is on sinus rhythm;l HR-93 with rare PVC's.
--- NOTE | 2017-02-01 18:53 | NUR ---
GI Pt had second large BM this evening, was very soft at the end. Pt had broth for dinner, stated he would try solid foods for breakfast.
[2017-02-02] MEDS: Sodium Chloride LOK Flush 10 mL Syringe IVFLUSH SCH ×3 (00:30→16:08)
[2017-02-02] MEDS: CeFAZolin Inj 2 GM in IV Premix 1 EACH IV SCH ×2 (01:10→09:41)
[2017-02-02 01:22] VITALS: BP 118/72; PULSE 86; RESP 16; O2SAT 97
[2017-02-02] MEDS: Heparin 5,000 Unit/mL Inj SUBQ SCH ×3 (01:26→16:08)
[2017-02-02 05:31] VITALS: BP 137/78; PULSE 91; RESP 16; O2SAT 98
--- NOTE | 2017-02-02 06:23 | NUR ---
Activity Pt remained in room for the evening, independent to bathroom. No complaints of pain or discomfort, alert and able to make needs known. Will monitor.
[2017-02-02] MEDS: Lactulose 20 Gm/30 mL 30 mL Syrup PO SCH (09:01)
[2017-02-02] MEDS: Mupirocin 2% 22 Gm Ointment NASAL SCH (09:02)
[2017-02-02] MEDS: Insulin LISPRO 300 Unit/3 mL Inj SUBQ SCH ×2 (09:14→12:00)
[2017-02-02] MEDS: Insulin GLARgine 100 Unit/mL Syringe SUBQ SCH (09:14)
[2017-02-02 10:18] VITALS: PULSE 83
[2017-02-02 10:30] VITALS: BP 129/81; PULSE 99; RESP 18; O2SAT 97
[2017-02-02] MEDS: 0.9% Sodium Chloride 1,000 ML IV SCH (10:46)
--- NOTE | 2017-02-02 10:59 | NUR ---
Social Work-readiness for discharge: Data:EMR Reviewed. Pt is on day 7 of hospitalization for dehydration per H&P. Pt is not medically stable anticipate 1-2 more days. Per MD in morning, ID to see pt today to determine abx needs for discharge. Pt may need detention IV abx. Per RN notes, pt has been up independent in his room. SW to follow up with pt if IV abx are needed post discharge. SW will continue to follow. assessment:Pt who is independent at baseline. Plan:Pt to discharge home when medically stable via POV. SW to follow for abx needs. SW will continue to follow. CHRISTOPHER Shin
--- NOTE | 2017-02-02 14:42 | PCM.PNMED ---
Subjective Date of Service Feb 02, 2017 Subjective Patient seen and examined at bedside . He is feeling better, no new complaints . He wants to go home BP improved significantly on low dose of meclizine Afebrile . Exam Vital Signs Vital Sign - Last Date Time Temp Pulse Resp B/P Pulse Ox O2 Delivery O2 Flow Rate FiO2 02/02/17 10:30 36.7 99 18 129/81 97 Room Air Intake and Output 02/01/17 02/01/17 02/02/17 Cumulative From/Thru 15:00 23:00 07:00 01/26/17 18:37 - 02/02/17 06:39 Intake Total 2187 ml 866 ml 22941 ml Output Total 1600 ml 900 ml 59662 ml Balance 587 ml -34 ml 72148 ml Intake Oral 1072 ml 0 ml 9860 ml IV Total 1115 ml 866 ml 83196 ml Output Urine Total 1600 ml 900 ml 43585 ml # Voids 3 # Bowel Movements 2 2 Lab and Diagnostics Result Diagram: 01/31/17 0623 02/01/17 1245 Microbiology Blood and urine cultures, pending. X-Rays, CTs and MRIs X-RAY CHEST, TWO VIEWS IMPRESSION: 1. Small right pleural effusion versus pleural thickening. Dictated by: Ayan Sanders M.D. on 01/26/2017 at 20:51 Approved by: Ayan Sanders M.D. on 01/26/2017 at 20:52 CT BRAIN WITHOUT CONTRAST IMPRESSION: 1. No acute intracranial abnormality. 2. Bilateral white matter hypodensities likely representing [id number] chronic small vessel ischemic changes. Dictated by: Ayan Sanders M.D. on 01/26/2017 at 20:07 Approved by: Ayan Sanders M.D. on 01/26/2017 at 20:09 12-lead ECG ECG showing sinus tachycardia with rate 103, no ST elevation and unchanged from prior. Chest xray showing a small right pleural effusion vs pleural thickening. Cardiac Echo Impressions Echocardiogram Report Name: MAHEDNRA BENNETT RStudy Date: Height: 70 in Hospital Exam Location: [facility] Weight: 154 lb Gender: Male BSA: 1.9 m2 : 1960 Age: 56 yrs BP: 118/67 mmHg Reason For Study: Endocarditis Ordering Physician: Performed By: Mere Trujillo Referring Physician: Dr. Isidoro Aguilar Interpretation Summary The left ventricle is normal in size. The ejection fraction is estimated to be 60-65%. There has been no significant change in LV EF since the previous study. The right ventricle is normal size. The right ventricular systolic function is normal. No significant valvular pathology seen. No obvious valvular vegetation seen. Consider KATERYNA if clinical suspicion for endocarditis is high. Assessment & Plan The patient is a 56-year-old white male with history of orthostatic hypotension , primary sclerosing cholangitis, DM type 2 insulin, hypothyriodism and prior infected diabetic foot ulcers (including MRSA) who presented to the ED following a syncopal episode two days prior to admission with the complaint of dizziness and generalized malaise. The patient was admitted to the hospitalist service for further evaluation and management of sepsis and syncope. 1. Severe Sepsis - Blood cultures positive x4 for high-grade Staph aureus - On IV Ancef for now.afebrile . Repeat blood culture : no growth to date - 2. Acute Urinary Tract Infection with Methicillin Sensitive Staph aureus. - Present on admission - Continue Ancef as above stone -ID followup pending : re-culture negative to date. Possibly Ancef until February 10 on Dalbavancin x one dose prior discharge 3. Nephrolithiasis - Pt is status post right ureteral stent placement on 01/27/2017 - Renal function improved 4. Acute Kidney Injury - Secondary to renal hypoperfusion and obstruction likely - Renal function back to baseline - Avoid nephrotoxic agents. Continue to monitor renal function and electrolytes 5. Primary Sclerosing Cholangitis with Hepatic Cirrhosis - This is a chronic problem for this patient - Continue home medications including Benadryl for pruritis and Lactulose 6. Hypothyroidism - ON Levothyroxine 7. Diabetes Mellitus, Type II - Continue Lantus BID - Continue SSI coverage - Continue to check Accu-Cheks q AC and HS 8. Hypokalemia, present on admission. Resolved 9. Hypotension : Improved with trial of meclizine 2.5 mg. His blood pressure has been sustained around 120-130 systolic now Patient is clinically and hemodynamically stable. BP improved with low dose of meclizine ID follow up pending for today . Possible Ancef until February 10 on Dalbavancin x one dose prior discharge Discharge anticipated within 24 hours GI Prophylaxis: Not indicated VTE Prophylaxis: Sub-Q Heparin (Unfractionated) VTE Mechanical Devices: Intermittant Pneumatic CD Resuscitation Status: CPR: Attempt Resuscitation Time spent 25 minutes Abran Samuels MD Feb 02, 2017 14:42
[2017-02-02 14:57] VITALS: BP 115/79; PULSE 99; RESP 17; O2SAT 98
[2017-02-02] MEDS ORDERED: cefTRIAXone Inj 2,000 MG in Dextrose 5% Minibag Plus 50 ML IV SCH (15:30)
--- NOTE | 2017-02-02 15:43 | PCM.DIMED ---
Discharge Instructions Date of Service Feb 02, 2017 Dates of Hospitalization Jan 26, 2017 at 22:29 Discharge Diagnosis Discharge Diagnosis 1. Severe Sepsis, 2. Acute Urinary Tract Infection with Methicillin Sensitive Staph aureus., 3. Nephrolithiasis, 4. Acute Kidney Injury, 5. Primary Sclerosing Cholangitis with Hepatic Cirrhosis 6. Hypothyroidism, 7. Diabetes Mellitus, Type II, 8 Hypotension Diet Heart Healthy, Diabetic Activity No restrictions Call your provider Fever or Chills Patient Instructions Follow-up plan Outpatient antibiotics : ceftraione daily until February 10 Follow up as outpatient with infectious Disease and Primary care physician within 7 days Follow-up with PCP in: 1 week (Primary care doctor and Infectious Disease ) Abran Samuels MD Feb 02, 2017 15:43
[2017-02-02] MEDS ORDERED: TAMS0.4C98 PO (15:50)
[2017-02-02] MEDS ORDERED: MIDO5TAB PO (15:50)
--- NOTE | 2017-02-02 15:52 | PCM.DC.MED ---
Discharge Summary Date of Service Feb 02, 2017 Dates of Hospitalization Date of Hospital Admission Jan 26, 2017 at 22:29 Date of Discharge: Feb 02, 2017 Providers: Admitting Physician: Estela Joiner DO Primary Care Physician: Jessica Aguilar MD Attending Physician: Estela Joiner DO Diagnosis at Time of Discharge Diagnosis at Time of Discharge 1. Severe Sepsis, 2. Acute Urinary Tract Infection with Methicillin Sensitive Staph aureus., 3. Nephrolithiasis, 4. Acute Kidney Injury, 5. Primary Sclerosing Cholangitis with Hepatic Cirrhosis 6. Hypothyroidism, 7. Diabetes Mellitus, Type II, 8 Hypotension Consultations Infectious Disease Procedures XRay, CTs & MRIs X-RAY CHEST, TWO VIEWS IMPRESSION: 1. Small right pleural effusion versus pleural thickening. Dictated by: Ayan Sanders M.D. on 01/26/2017 at 20:51 Approved by: Ayan Sanders M.D. on 01/26/2017 at 20:52 CT BRAIN WITHOUT CONTRAST IMPRESSION: 1. No acute intracranial abnormality. 2. Bilateral white matter hypodensities likely representing fymc-ul-zgatalih chronic small vessel ischemic changes. Dictated by: Ayan Sanders M.D. on 01/26/2017 at 20:07 Approved by: Ayan Sanders M.D. on 01/26/2017 at 20:09 ECG 12 Lead ECG showing sinus tachycardia with rate 103, no ST elevation and unchanged from prior. Chest xray showing a small right pleural effusion vs pleural thickening. Cardiac Echo Impression Echocardiogram Report Name: MAHENDRA BENNETT RStudy Date: Height: 70 in Hospital Exam Location: [facility] Weight: 154 lb Gender: Male BSA: 1.9 m2 : 1960 Age: 56 yrs BP: 118/67 mmHg Reason For Study: Endocarditis Ordering Physician: Performed By: Mere Trujillo Referring Physician: Dr. Isidoro Aguilar Interpretation Summary The left ventricle is normal in size. The ejection fraction is estimated to be 60-65%. There has been no significant change in LV EF since the previous study. The right ventricle is normal size. The right ventricular systolic function is normal. No significant valvular pathology seen. No obvious valvular vegetation seen. Consider KATERYNA if clinical suspicion for endocarditis is high. Brief History 56yoM with history of orthostatic hypotension, primary sclerosing cholangitis, DM type 2 insulin, hypothyriodism and prior infected diabetic foot ulcers ( including MRSA) who presented to the ED following a syncopal episode two days ago with the complaint of dizziness and generalized malaise. He states that he just 'hasn't felt right' for the past three days and two days ago he states that he blacked out upon standing. He endorses brief loss of consciousness but he states that he did not hit his head and denies any trauma secondary to the incident. Associated symptoms headache and generalized weakness. Of note, he reports scattered excoriations on his upper and lower extremities secondary to chronic itching related to his PSC, benadryl provides mild relief. He denies redness, swelling, increased tenderness or purulent drainage from any of these. Additionally he denies fever, chills, chest pain, cough, shortness of breath, darker than normal urine but otherwise no or GI symptoms. In the ED, vitals 36.4, BP 91/64, pulse 108, 99% on room air. Labs: wbc 18.9, H/ H 10.0/29.7, plts 159, sodium 126, potassium 4.2, chloride 88, bicarb 20, BUN 33 , creatinine 1.28, serum glucose 378. procalcitonin 4.30. lactic acid 1.7, total bili 6.5, AST/ALT 124/65, alk phos 1098, troponin negative x1, proBNP 954.6. Urinalysis- 0-5wc, 11-50rbc, large occult blood , positive nitrite, moderate bili, moderate leukocyte esterase, few bacteria, ECG showing sinus tachycardia with rate 103, no ST elevation and unchanged from prior. Chest xray showing a small right pleural effusion vs pleural thickening. CT head with no acute intracranial abnormality, bilateral white matter hypodensities likely representing mild-to- moderate chronic small vessel ischemic changes. Blood and urine cultures sent and he received an IV dose of vancomycin and zosyn as well as a 1L bolus of normal saline. Hospital Course The patient is a 56-year-old white male with history of orthostatic hypotension , primary sclerosing cholangitis, DM type 2 insulin, hypothyriodism and prior infected diabetic foot ulcers (including MRSA) who presented to the ED following a syncopal episode two days prior to admission with the complaint of dizziness and generalized malaise. The patient was admitted to the hospitalist service for further evaluation and management of sepsis and syncope. 1. Severe Sepsis - Blood cultures positive x4 for high-grade Staph aureus - On IV Ancef for now.afebrile . Repeat blood culture : no growth to date - will continue with IV antibiotic as outpatient until February 10 - 2. Acute Urinary Tract Infection with Methicillin Sensitive Staph aureus. - Present on admission - Antibiotics as above 3. Nephrolithiasis - Pt is status post right ureteral stent placement on 01/27/2017 - Renal function improved 4. Acute Kidney Injury - Secondary to renal hypoperfusion and obstruction likely - Renal function back to baseline - Avoid nephrotoxic agents. Continue to monitor renal function and electrolytes 5. Primary Sclerosing Cholangitis with Hepatic Cirrhosis - This is a chronic problem for this patient - Continue home medications including Benadryl for pruritis and Lactulose 6. Hypothyroidism - ON Levothyroxine 7. Diabetes Mellitus, Type II - Continue Lantus BID - Continue SSI coverage - Continue to check Accu-Cheks q AC and HS 8. Hypokalemia, present on admission. Resolved 9. Hypotension : Improved with trial of meclizine 2.5 mg. His blood pressure has been sustained around 120-130 systolic now Patient is clinically and hemodynamically stable ad being discharge home in good condition Exam Vital Signs (Last) Date Time Temp Pulse Resp B/P Pulse Ox O2 Delivery O2 Flow Rate FiO2 02/02/17 14:57 36.7 99 17 115/79 98 Room Air Exam General: Chronically ill-appearing, No acute distress. In bed comfortably HEENT: PERRL . Sclerae is anicteric Mouth : Moist oropharyngeal mucosa. No oral thrush Neck: supple, trachea is midline , no JVD Chest:clear to auscultation bilaterally . No crackles, no wheezing. Heart: S1, S2 regular Rate, rhythm is regular. There is no murmur, rub or gallop. Abdomen: Soft, non-tender, non-distended. Normal bowel sounds on quadrant Extremities: No edema, no cyanosis Neurologic: Grossly non focal Test 01/26/17 19:24 01/26/17 21:00 01/27/17 14:55 01/27/17 19:31 Prothrombin Time 10.5sec (8.1-12.5) Prothromb Time International Ratio 0.98ratio Activated Partial Thromboplast Time 27.6sec (22.8-33.0) Hemoglobin A1c 8.6% (4.8-5.6) Magnesium Level 2.1mg/dL (1.6-2.6) Troponin T < 0.010ug/L (0.0-0.011) Pro-B-Type Natriuretic Peptide 954.6pg/mL (0-210) Hold Nguyen Top Tube Received (Received) Urine Ictotest Positive (Negative) Lactic Acid Level 0.7mmol/L (0.4-2.0) Urine Color Yellow (YELLOW) Urine Appearance Turbid (CLEAR,HAZY) Urine pH 5.5 (5.0-8.0) Urine Specific Ash[place] <1.005 (1.003-1.035) Urine Protein 30mg/dL (NEG,TRACE) Urine Glucose (UA) Negativemg/dL (NEGATIVE) Urine Ketones Negativemg/dL (NEGATIVE) Urine Occult Blood Large (NEGATIVE) Urine Nitrite Positive (NEGATIVE) Urine Bilirubin Negative (NEGATIVE) Urine Urobilinogen 2.0mg/dL (NORMAL) Urine Leukocyte Esterase Moderate (NEGATIVE) Urine RBC 3-10/hpf (0-2) Urine WBC >50/hpf (0-5) Urine Epithelial Cells Occasional/hpf (NONE-MOD) Urine Crystals None seen (NONE SEEN) Urine Bacteria Many/hpf (NONE-FEW) Urine Hyaline Casts None/lpf (NONE) Urine Granular Casts None seen (NONE SEEN) Urine Waxy Casts None seen (NONE SEEN) Urine Red Blood Cell Casts None seen (NONE SEEN) Urine White Blood Cell Casts None seen (NONE SEEN) Urine Mucus None seen (None Seen) Urine Trichomonas None seen (NONE SEEN) Urine Yeast None (NONE SEEN) Urinalysis Comment None Urine Culture Reflexed Indicated Hold Urine Received (Received) Test 01/29/17 05:40 01/31/17 06:23 02/01/17 12:45 Procalcitonin 1.00ng/mL (0.00-0.08) White Blood Count 8.2th/mm3 (3.8-10.1) Red Blood Count 3.12mil/mm3 (4.40-5.80) Hemoglobin 8.5g/dL (13.8-17.2) Hematocrit 25.5% (41.0-50.0) Mean Corpuscular Volume 81.7fL (81-100) Mean Corpuscular Hemoglobin 27.2pg (27.0-35.0) Mean Corpuscular Hemoglobin Concent 33.3% (32.0-37.0) Red Cell Distribution Width 15.4% (12.3-15.4) Platelet Count 208bil/L (150-400) Neutrophils (%) (Auto) 74.6% (40-74) Lymphocytes (%) (Auto) 11.1% (14-46) Monocytes (%) (Auto) 10.1% (4-12) Eosinophils (%) (Auto) 3.0% (0-5) Basophils (%) (Auto) 0.2% (0-3) Sodium Level 131mEq/L (134-144) Potassium Level 3.8mEq/L (3.5-5.2) Chloride Level 94mEq/L (97-108) Carbon Dioxide Level 24mmol/L (18-29) Blood Urea Nitrogen 9mg/dL (6-24) Creatinine 1.15mg/dL (0.76-1.27) Estimat Glomerular Filtration Rate 70mL/min (>59) Glucose Level 211mg/dL (60-99) Calcium Level 8.3mg/dL (8.5-10.1) Total Bilirubin 3.5mg/dL (0.0-1.2) Aspartate Amino Transf (AST/SGOT) 94U/L (0-50) Alanine Aminotransferase (ALT/SGPT) 13U/L (0-44) Alkaline Phosphatase 1124U/L (25-150) Total Protein 6.1g/dL (6.4-8.4) Albumin 2.0g/dL (3.4-5.0) Microbiology Results Blood and urine cultures, pending. Discharge Medications Discharge Medications Atorvastatin (Lipitor) 40 Mg Tablet 40 MG PO HS Prescribed by: BLAIR BARROW DO Cholecalciferol (Vitamin D3) (Vitamin D3) 5,000 Unit Tablet 5,000 UNIT PO HS ( Reported) Insulin Glargine (Lantus U100 Solostar Insulin Pen) 100 Unit/1 Ml Insuln.pen 20 UNIT SUBQ BID (Reported) Insulin Regular, Human (Novolin-R U100 Insulin Vial) 100 Unit/1 Ml Vial 12 UNITS SQ TIDWM (Reported) Lactulose (Lactulose) 10 Gm/15 Ml Solution 15 ML PO QAM (Reported) Levothyroxine (Levothyroxine) 175 Mcg Tablet 175 MCG PO QAM (Reported) Midodrine (Midodrine) 5 Mg Tablet 2.5 MG PO TID Prescribed by: ATIYA SAMUELS MD Tamsulosin (Flomax) 0.4 Mg Capsule 0.4 MG PO DAILY Prescribed by: ATIYA SAMUELS MD diphenhydrAMINE HCl (Benadryl) 25 Mg Capsule 50 MG PO BID (Reported) Followup Plan Disposition: Home Follow-up plan Outpatient antibiotics : ceftraione daily until February 10 Follow up as outpatient with infectious Disease and Primary care physician within 7 days Discharge Diet: Heart Healthy, Diabetic Discharge Activity: No restrictions Follow-up with PCP in: 1 week (Primary care doctor and Infectious Disease ) Time spent 35 minutes Patient seen and examined on discharge date Atiya Samuels MD Feb 02, 2017 15:48
--- NOTE | 2017-02-02 15:55 | NUR ---
Social Work-discharge: data:EMR reviewed. Pt is on day 7 of hospitalization for dehydration per H&P. Pt is medically stable for discharge. MD has ordered oral abx for pt at discharge. per RN notes, pt has been up independent in his room. Pt's family to provide transport home. No anticipated discharge needs. All updated and agreeable to plan. Assessment:pt who is independent at baseline. Plan:Pt to discharge home today via POV. Pt to return home on Oral abx. No anticipated discharge needs. All updated and agreeable to plan. CHRISTOPHER Shin
--- NOTE | 2017-02-02 17:46 | PROG NOTE ---
[address] [address] PROGRESS NOTE PATIENT: MAHENDRA BENNETT : 1960 MR#: [id number] ADMIT: 01/26/2017 JOB ID: [id number] DATE: 02/02/2017 REASON FOR FOLLOWUP: High-grade Staph aureus bacteremia apparently secondary to complicated urinary tract infection. INTERVAL HISTORY: Recall that this is the 56-year-old gentleman with cirrhosis who has a history of recurrent bacteremic staphylococcal infections. He was admitted this time with what is apparently MSSA high-grade bacteremia secondary to urinary source. This is an unusual problem, and I have been worried, of course, about endocarditis but transthoracic echo was negative and we cannot do a transesophageal echo because of his varices. His blood cultures turned negative rapidly and he has been doing well overall. The patient has been feeling fine over the weekend, he states. No fevers. No chills. No sweats. No significant cough, shortness of breath, nausea, vomiting, or diarrhea. He has been using a peripheral IV in his right arm with no difficulty. PHYSICAL EXAMINATION: Reveals an afebrile gentleman, temperature 36.7, pulse 99, respiratory rate 17, blood pressure 115/79. He is saturating well on room air. He is in no acute distress. Oral cavity negative. Lungs clear. Cardiac tones without new regurgitant or systolic murmur. His abdomen is benign. No skin rash and his right antecubital IV looks good even though it has been in now for six days. LABORATORIES: Include a white count which has normalized as of the to 8200. No CBC since then. Yesterday's creatinine was 1.15, alk phos 1124, albumin 2.0. Urinalysis had initially greater than 50 white cells. It has not been repeated. Recall that our blood cultures on the and grew Staph aureus as did urine cultures, but on the the blood cultures were negative. IMPRESSION: This is a challenging case of a gentleman with recurrent staph infection who this time seems to have an methicillin-sensitive Staphylococcus aureus not related to skin and soft tissue nor a cardiac valve but strictly due to a urinary tract infection. Because of his long history of bacteremias and his immunosuppressed state due to cirrhosis, I think four weeks of therapy by the intravenous route is justified, but in view of the patient's wishes to maintain as much autonomy as he can and stay out of the hospital and free of encumbrances as much as possible, will pursue a bit of an unusual course using basically two weeks of IV cephalosporin therapy to be switched to a single dose of dalbavancin at the conclusion of this therapy. RECOMMENDATIONS: 1. The patient is going to receive 2 g of ceftriaxone today and then they are going to pull his IV and he can go home. 2. He will be returning to the [facility] [place] starting tomorrow which is the through the to get a dose of ceftriaxone using peripheral IVs if at all possible. If we have to, we will add a midline catheter. 3. On the , will go ahead and give a single dose of 1.5 g of dalbavancin. The combination of the two weeks of IV cephalosporins plus the one large infusion of dalbavancin should effectively give him four weeks of IV therapy for this MSSA bacteremia and hopefully will be more than adequate. Note that this case was discussed with the nurse as well as the hospitalist and in depth with the patient.
--- NOTE | 2017-02-12 22:24 | OP ---
[address] [address] OPERATIVE REPORT PATIENT: MAHENDRA BENNETT : 1960 MR#: [id number] ADMIT: 01/26/2017 JOB ID: [id number] DATE OF SURGERY: 01/27/2017 SURGEON: Sindi Sandoval MD PREOPERATIVE DIAGNOSIS(ES): 1. Obstructing 6 mm right proximal ureteral calculus. 2. Multiple bilateral nephrolithiasis. 3. Possible urinary tract infection/sepsis. POSTOPERATIVE DIAGNOSIS(ES): 1. Obstructing 6 mm right proximal ureteral calculus. 2. Multiple bilateral nephrolithiasis. 3. Possible urinary tract infection/sepsis. OPERATION PERFORMED: 1. Cystoscopy. 2. Right ureteral stone manipulation without removal. 3. Placement of right ureteral stent (6-Citizen [place] x 22-32 length multilink stent). ANESTHESIA: General. PROCEDURE SUMMARY: The patient was positioned in supine and was administered general anesthesia. He was then repositioned in semilithotomy and the lower abdomen, genitalia, and groin were prepped and draped in sterile fashion. The 22-Citizen [place] panendoscope was inserted into the lower urinary tract. A 0.35 Glidewire was then advanced into the right collecting system under direct and fluoroscopic guidance. Over this, a 6-Citizen [place] x 22-32 cm multilength stent was selected and advanced over the Glidewire under direct and fluoroscopic guidance. NO RETRIEVAL LINE WAS LEFT ATTACHED. The bladder was then drained completely. The patient was repositioned in supine, was awakened, transferred to [facility], and transferred to Recovery in stable condition.
[2017-03-31] MEDS ORDERED: LIP40 PO (15:47)
[2017-03-31] MEDS ORDERED: ASPI-973 PO (15:47)
[2017-03-31] MEDS ORDERED: MIDO5TAB PO (15:47)
[2017-03-31] MEDS ORDERED: ALBU8.5H2 INHALATION (15:47)
[2017-03-31] MEDS ORDERED: CHOL500011 PO (15:47)
[2017-03-31] MEDS ORDERED: INSU100I (15:47)
[2017-03-31] MEDS ORDERED: BECL8.7A6 INHALATION (15:47)
[2017-03-31] MEDS ORDERED: INSU100V7 SUBQ (15:47)
[2017-03-31] MEDS ORDERED: LEVO200T24 PO (15:47)
[2017-03-31] MEDS ORDERED: LAC10 PO (15:47)
[2017-03-31] MEDS ORDERED: HYDR28.484 RC (15:47)
[2017-03-31] MEDS ORDERED: TAMS0.4C98 PO (15:47)
== END 2017-02-02 17:09 | disposition home or self-care (01) | DRG 872 ==
LOC: SED 18:35 → OSC 22:29
PROVIDERS: ADMIT Internal Medicine; ATTEND Internal Medicine
PROC: 0T768DZ Dilation of Right Ureter with Intraluminal Device, Via Natural or Artificial Opening Endoscopic (ICD-10-PCS; principal; 2017-01-27 16:00)
DX: A41.9 Sepsis, unspecified organism (principal); N17.9 Acute kidney failure, unspecified; E87.1 Hypo-osmolality and hyponatremia; N39.0 Urinary tract infection, site not specified; K83.0 Cholangitis; N13.6 Pyonephrosis; E11.65 Type 2 diabetes mellitus with hyperglycemia; Z79.4 Long term (current) use of insulin; E78.5 Hyperlipidemia, unspecified; E89.0 Postprocedural hypothyroidism; R00.0 Tachycardia, unspecified; E86.0 Dehydration; K74.60 Unspecified cirrhosis of liver; E11.42 Type 2 diabetes mellitus with diabetic polyneuropathy; Z87.891 Personal history of nicotine dependence; B95.61 Methicillin susceptible Staphylococcus aureus infection as the cause of diseases classified elsewhere; E87.6 Hypokalemia; R65.20 Severe sepsis without septic shock; I95.1 Orthostatic hypotension

== ENCOUNTER 2017-04-02 09:20 | Day surgery (SDC) | payer OTHER ==
[~2017-04-02] VITALS: Ht 175.3 cm; Wt 64.9 kg
[2017-04-02] VITALS (8 sets, daily range): BP systolic 94–116; BP diastolic 49–70; PULSE 73–83; RESP 14–17; O2SAT 95–100
[~2017-04-02 09:20] MED LIST changes: +ALBU8.5H2 INHALATION; -AMOX500C2 PO; +ASPI-973 PO; +Acetaminophen IV 1,000 mg IV ONE; +BECL8.7A6 INHALATION; -CHOL200047 PO; +CHOL500011 PO; -CLOP75TA28 PO; +CeFAZolin 2 Gm/50 mL D5W IV Premix IV ONE; -DIPH50C PO; +HYDR28.484 RC; +INSU100I; -INSU100I13 SUBQ; -INSU100I8 SUBQ; +INSU100V7 SUBQ; +LEVO200T24 PO; +MIDO5TAB PO; -SPIR50TA2 PO; -SYN.15T2 PO; +TAMS0.4C98 PO
[2017-04-02] MEDS ORDERED: Insulin Human REGular-Omnicell 100 Unit/mL ONE (10:23)
[2017-04-02] MEDS: Lactated Ringer's 1,000 ML IV SCH ×2 (10:37→13:44)
--- NOTE | 2017-04-02 11:42 | PCM.HPANE ---
Patient Data Surgeon Admitting Provider: Attending Provider:Sindi Sandoval MD Primary Care Physician:Jessica Aguilar MD Other Provider:Jerardo Lopes Anesthesia Reason for Visit Right Ureteral Stone Ht/WT & BMI Height (Feet): 5 Height (Inches): 9.00 Weight (Kilograms): 64.9 Body Mass Index 21.00 Allergies Coded Allergies: No Known Allergies (Verified , 02/21/16) Past Anesthesia History Anesthesia History: Denies:: Anesthesia Reactions, Difficult Intubation, Fam Anesthesia Reaction, Fam Malignant Hypertherm, Malignant Hyperthermia Diabetes History Hx Diabetes?: Yes Type of Diabetes: Type II Glycemic Control: Insulin Dependent Current Bedside Blood Glucose: 540 MRSA MRSA: Yes (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 ago in nares, rechecked less than yr ago and neg.) Medications Blood Thinner: Aspirin Hypertension Medication: No Home Meds Incl Beta Idalia: No Reported Medications Insulin Aspart (NovoLOG U-100 Pen)100 Unit/Ml Insuln.pen12 Units TIDAC 03/31/17 Tamsulosin (Flomax)0.4 Mg Capsule0.4 Mg PO HS Ref 0 03/31/17 Aspirin 81 Mg Cmsorn04 Mg PO DAILY Ref 0 03/31/17 Lactulose 10 Gm/15 Ml Gjhgnlkr49 Gm PO DAILY 03/31/17 Insulin Glargine (Lantus U100 Insulin Vial)100 Unit/Ml Vial30 Unit SUBQ BID #1 VIAL Ref 0 03/31/17 Levothyroxine (Levoxyl)200 Mcg Gpmobq542 Mcg PO AM Ref 0 03/31/17 Cholecalciferol (Vitamin D3) (Vitamin D3)5,000 Unit Tablet5,000 Unit PO DAILY 03/31/17 Atorvastatin (Lipitor)40 Mg Xoapcf12 Mg PO DAILY Ref 0 03/31/17 Midodrine 5 Mg Tablet2.5 Mg PO TID 03/31/17 Discontinued Reported Medications Hydrocortisone 1 % Cream..g.1 Applic RC BID PRN skin irritation 03/31/17 Beclomethasone Dipropionate (Qvar)8.7 Gm Aer.w.adap1 Puff INHALATION BID #8.7 GM 03/31/17 Albuterol HFA (Proair HFA)8.5 Gm Hfa.aer.ad2 Puffs INHALATION Q4H PRN For Shortness of Breath #1 INHALER 03/31/17 Levothyroxine 175 Mcg Jxlfwa127 Mcg PO QAM Ref 0 01/26/17 diphenhydrAMINE HCl (Benadryl)25 Mg Cypdcow43 Mg PO BID Ref 0 01/26/17 Cholecalciferol (Vitamin D3) (Vitamin D3)5,000 Unit Tablet5,000 Unit PO HS 01/26/17 Insulin Regular, Human (Novolin-R U100 Insulin Vial)100 Unit/1 Ml Vial12 Units SQ TIDWM #1 VIAL Ref 0 01/26/17 Insulin Glargine (Lantus U100 Solostar Insulin Pen)100 Unit/1 Ml Insuln.pen20 Unit SUBQ BID 09/30/15 Lactulose 10 Gm/15 Ml Zzeokybo15 Ml PO QAM 01/18/15 Discontinued Scripts Tamsulosin (Flomax)0.4 Mg Capsule0.4 Mg PO DAILY #30 CAPSULE Prov:Abran Samuels MD 02/02/17 Midodrine 5 Mg Tablet2.5 Mg PO TID #90 TABLET Prov:Abran Samuels MD 02/02/17 Atorvastatin (Lipitor)40 Mg Mvlnch95 Mg PO HS #30 TABLET Ref 3 Prov:Kostas Pascual MD 06/11/14 History History of ENT Problems?: No HEENT History: Denies:: Cataracts Difficult Intubation Dysphagia Hearing Problem Sinus Problem Denture Type: None Teeth Condition: Within Normal Limits Hx of Heart Problems?: No Cardiovascular History: Positive for:: Cardiac Surgery (stent to RLE artery approx 1 year ago) Denies:: Atrial Fibrillation Chest Pain Congestive Heart Failure Edema Heart Murmur Hypertension Irregular Heartbeat Pacemaker Thrombophlebitis Hx of Respiratory Problem?: No Respiratory History: Positive for:: Chest Surgery (R. lung surgery secondary to infection) Dyspnea Pneumonia Denies:: Asthma COPD Emphysema Hemoptysis Oxygen Administration Tuberculosis Use of C-PAP Machine Use of Inhalers / NEBS Hx Neurologic Problems?: No Neurological History: Positive for:: Dizziness Denies:: Alzheimer's Disease CVA Dementia Headaches Parkinson's Disease Seizures Hx of GI Problems?: Yes Other GI Pertinent History: hx of primary sclerosing cholangitis with cirrhosis Hx of Problems?: Yes Genitourinary History: Positive for:: Kidney Stones (current admission problem - right stone) Urinary Tract Infection (hx of admission for MSSA sepsis 01/2017) Denies:: HX of Hemodialysis HX of Peritoneal Dialysis: No Male Hx: Denies:: Prostate Problems Scrotal Mass Testicular Surgery Skin History: Positive for:: History Skin Disorders? Denies:: Pressure Ulcers Hx Musculoskeletal Problems?: No Musculoskeletal History: Denies:: Back Injury Joint Replacement Musculoskeletal Trauma Hx of Psycho/Social Problems?: No Psycho Social History: Denies:: Anxiety Bipolar Disorder Hx Depression Suicide Attempt Hx Surgeries?: Yes Hx Any Other Health Problems?: Yes Other History: Positive for:: Endocrine Disease Hospitalization Thyroid Disease (had thyroidectomy, cysto-stent) Denies:: Cancer History Blood Transfusions: Denies:: Blood Transfuse Reaction Blood Transfusions Hx Diabetes: YesBedside Blood Glucose: 540 Hx Alcohol Use: NoHx Substance Use: No Smoking Status: Former Smoker Have You Smoked inLast 12 mo: No Stop/Bang Treated for Sleep Apnea?: No Do You Have a CPAP Machine?: No S-Snoring: Do You Snore Loudly: No T-Tired: feel tired, fatigued: No O-Obsered: Observed not breath: No P-Blood Pressure: treated: No B- Body Mass Index > 35 kg/m2: No A- Age over 50: Yes N- Neck Large Circumference: No G- Gender Male: Yes KERI Total Score: 2 KERI Risk Assessment: Low Risk, <3 Yes Risk Assessment Category Category 1A: Patient has history of documented sleep apnea, and HAS NOT received any narcotic, sedative or anesthesia administration during this stay. Category 1B: Patient has history of documented sleep apnea, and HAS received any narcotic , sedative or anesthesia administration during this stay Category 2: Patient has SUSPECTED Obstructive Sleep Apnea, and HAS received any narcotic , sedative or anesthesia administration during this stay. Category 3: Patient has SUSPECTED Obstructive Sleep Apnea and HAS NOT received narcotic, sedative or anesthesia administration during this stay. Category 4: Outpatient in Procedural Areas with known sleep apnea or who screen positive for High Risk via the STOP/BANG questionnaire. Exam Exam Vital Signs Vital Signs Date Time Temp Pulse Resp B/P Pulse Ox O2 Delivery O2 Flow Rate FiO2 04/02/17 10:38 36 74 14 116/70 100 Room Air General Appearance: Oriented X3 HEENT/AIRWAY: MP 2 Lungs: Normal Air Movement Heart: Regular Rate/Rhythm Meds/Labs/Diagnostics Admission Meds Current Medications Lactated Ringer's (Lr) 1,000 ml @ 120 mls/hr Q8H20M IV Last administered on 10:37; Start 04/02/17 at 05:00; Stop 04/02/17 at 13:19 Insulin Human Regular (HUMulin-R Insulin U-100 Inj) 10 unit STK-MED ONCE .ROUTE Last administered on 04/02/17 10:28; Start 04/02/17 at 10:23; Stop 04/02/17 at 10:27; Status DC Bedside Blood Glucose: 540 Plan Impression Patient chart reviewed, patient interviewed and anesthestic plan with risks, benefits, and alternatives discussed, and informed consent obtained. ASA Physical Status: ASA3 Severe Disease Anesthetic Plan: GA Bene/Risks/Altern/Consents: Yes HP Complete Prior to Induction: Yes Ty Nguyen MD Apr 02, 2017 11:42
[2017-04-02] MEDS ORDERED: Lactated Ringer's 1,000 ML IV SCH (14:11)
[2017-04-02] MEDS ORDERED: Lactated Ringer's 500 ML IV PRN (14:11)
[2017-04-02] MEDS ORDERED: EPHEDrine Sulfate 50 mg/mL Inj IVPUSH PRN (14:15)
[2017-04-02] MEDS ORDERED: fentaNYL-PF 50 mCg/mL 2 mL Inj IVPUSH PRN (14:15)
[2017-04-02] MEDS ORDERED: Ondansetron 2 mg/mL 2 mL Inj IVPUSH PRN (14:15)
[2017-04-02] MEDS ORDERED: HYDROmorphone 1 mg/mL Inj IVPUSH PRN (14:15)
[2017-04-02] MEDS ORDERED: Phenylephrine 10,000 mCg/mL Inj IVPUSH PRN (14:15)
[2017-04-02] MEDS ORDERED: MetoCLOpramide 5 mg/mL 2 mL Inj IVPUSH PRN (14:15)
[2017-04-02] MEDS ORDERED: Dexamethasone 4 mg/mL Inj IVPUSH PRN (14:15)
[2017-04-02] MEDS ORDERED: Furosemide 10 mg/mL 2 mL Inj IV ONE (14:40)
--- NOTE | 2017-04-02 15:51 | PCM.ANEP1 ---
Post Anesthesia PACU Phase 1 Assessment Vital Signs Vital Signs Date Time Temp Pulse Resp B/P Pulse Ox O2 Delivery O2 Flow Rate FiO2 04/02/17 15:20 36.3 75 16 110/61 95 Room Air 04/02/17 15:10 73 17 102/52 95 Room Air 04/02/17 14:55 75 15 94/49 96 Room Air 04/02/17 14:50 83 17 95/56 97 Room Air 04/02/17 14:45 82 15 102/60 96 Room Air 04/02/17 14:40 36.5 80 17 111/65 96 Room Air 04/02/17 10:38 36 74 14 116/70 100 Room Air Anesthetic Administered: GA Level of Alertness: Awake, talking Pain: No Nausea or Vomiting: No CV Function & Hydration Stable: Yes Airway Device: Lungs: Normal Air Movement PACU Phase 2 Assessment Patient Instructions Provided: N/A Ty Nguyen MD Apr 02, 2017 15:51
--- NOTE | 2017-04-02 16:57 | DRSVH ---
PROCEDURE: X-RAY KUB ([id number]) INDICATIONS: KIDNEY STONE TECHNIQUE: One view of the abdomen acquired. COMPARISON: [facility], CR, XR KUB, 02/16/2017, 10:13. FINDINGS: Surgical changes and devices: Stable positioning of a right ureteral stent. Bowel: Normal bowel gas pattern. Soft tissues: 1.1 cm calcification projected over the mid to lower pole the right kidney. 2 3 mm c alcifications again seen projected over the lower pole of the left kidney. Bones: No suspicious bony lesions. IMPRESSION: 1. Right ureteral stent in expected unchanged position. 2. 1.1 cm calcification projected over the mid to lower pole of the right kidney. 3. 2 3 mm calcifications projected over the left kidney. Dictated by: Juan WEBER Interpreted: Gwendolyn Hollins MD on 04/02/2017 at 10:04 Approved by: Gwendolyn Hollins M.D. on 04/02/2017 at 16:55
--- NOTE | 2017-04-17 07:36 | OP ---
[address] [address] OPERATIVE REPORT PATIENT: MAHENDRA BENNETT : 1960 MR#: [id number] ADMIT: 04/02/2017 JOB ID: [id number] DATE OF SURGERY: 04/02/2017 PREOPERATIVE DIAGNOSIS(ES): 1. Right nephrolithiasis. 2. Indwelling right ureteral stent. POSTOPERATIVE DIAGNOSIS(ES): 1. Right nephrolithiasis. 2. Indwelling right ureteral stent. OPERATION PERFORMED: 1. Right extracorporeal shockwave lithotripsy (ESWL) (maximal power level 5.0 x2500 shocks). 2. Cystoscopy and right ureteral stent removal. SURGEON: Sindi Sandoval MD ANESTHESIA: General anesthesia. PROCEDURE SUMMARY: The patient was positioned in supine and was administered general anesthesia. The above described stone in the right collecting system was then localized in the X, Y, and Z planes. Lithotripsy was then commenced at minimal power level for approximately 200 shocks, at which point a 2-minute pause was conducted. Lithotripsy was then again commenced and the power level was gradually increased to a maximum of 5. A total of 2500 shocks was delivered to the stone. It was re-imaged periodically throughout the treatment for re-localization as needed. At 2500 shocks there was excellent evidence of stone comminution. The patient was then repositioned in semilithotomy and the lower abdomen, genitalia, and groin were prepped and draped in sterile fashion. The 22-Malay panendoscope was then passed into the lower urinary tract and advanced into the bladder. The above-described stent was visualized and engaged with alligator foreign body graspers and was removed without incident. The bladder was then drained completely. The patient was then repositioned in supine, was awakened, and then transferred to a [facility], awake and in stable condition.
== END 2017-04-02 23:59 | disposition home or self-care (01) ==
LOC: SAS 09:20
PROVIDERS: ATTEND Specialist
DX: N20.2 Calculus of kidney with calculus of ureter (principal); E11.9 Type 2 diabetes mellitus without complications; D64.9 Anemia, unspecified; E87.1 Hypo-osmolality and hyponatremia; E03.9 Hypothyroidism, unspecified; K74.60 Unspecified cirrhosis of liver; Z79.4 Long term (current) use of insulin; Z79.82 Long term (current) use of aspirin; Z86.14 Personal history of Methicillin resistant Staphylococcus aureus infection; Z95.820 Peripheral vascular angioplasty status with implants and grafts; Z87.891 Personal history of nicotine dependence; Z87.440 Personal history of urinary (tract) infections
CPT/HCPCS: 50590; 52310; 74000; J1815; J1940; J7120

== ENCOUNTER 2017-05-28 10:24 | Day surgery (SDC) | payer OTHER ==
[~2017-05-28] VITALS: Ht 177.8 cm; Wt 63.6 kg
[2017-05-28] VITALS (8 sets, daily range): BP systolic 118–137; BP diastolic 65–85; PULSE 64–78; RESP 12–18; O2SAT 94–100
[~2017-05-28 10:24] MED LIST changes: -ALBU8.5H2 INHALATION; +Acetaminophen IV 1,000 MG in IV Premix 1 EACH IV ONE; -Acetaminophen IV 1,000 mg IV ONE; -HYDR28.484 RC; +Lactated Ringer's 1,000 ML IV SCH
[2017-05-28] MEDS ORDERED: Lidocaine PF 1% 30 mL Inj ONE (10:25)
[2017-05-28] MEDS ORDERED: MetoCLOpramide 5 mg/mL 2 mL Inj ONE (10:25)
[2017-05-28] MEDS ORDERED: Propofol 10,000 mCg/mL 20 mL Inj ONE (10:25)
[2017-05-28] MEDS ORDERED: Ondansetron 2 mg/mL 2 mL Inj ONE (10:25)
[2017-05-28] MEDS ORDERED: Phenylephrine/NS 100 mCg/mL 10 mL Syringe IVPUSH ONE (10:25)
[2017-05-28] MEDS ORDERED: Dexamethasone 4 mg/mL Inj ONE (10:25)
[2017-05-28] MEDS ORDERED: CeFAZolin 2 Gm/50 mL D5W Duplex Bag IV ONE ×2 (11:32→11:33)
--- NOTE | 2017-05-28 13:23 | PCM.HPANE ---
Patient Data Date of Service: May 28, 2017 Surgeon Admitting Provider: Attending Provider:Sindi Sandoval MD Primary Care Physician:Jessica Aguilar MD Other Provider:Jerardo Lopes Anesthesia Reason for Visit Left Kidney Stone Ht/WT & BMI Height (Feet): 5 Height (Inches): 10 Weight (Kilograms): 63.6 Body Mass Index 20.00 Allergies Coded Allergies: No Known Allergies (Verified , 05/26/17) Past Anesthesia History Anesthesia History: Denies:: Abnormal Airway, Anesthesia Reactions, Difficult Intubation, Fam Anesthesia Reaction, Fam Malignant Hypertherm, Malignant Hyperthermia Diabetes History Hx Diabetes?: Yes Type of Diabetes: Type II Glycemic Control: Insulin Dependent Current Bedside Blood Glucose: 126 MRSA MRSA: Yes (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 ago in nares, rechecked less than yr ago and neg.) Medications Blood Thinner: Aspirin Hypertension Medication: Yes Home Meds Incl Beta Idalia: No Reported Medications Beclomethasone Dipropionate (Qvar)8.7 Gm Aer.w.adap1 Puff INHALATION BID #8.7 GM 05/26/17 Insulin Aspart (NovoLOG U-100 Pen)100 Unit/Ml Insuln.pen12 Units TIDAC 03/31/17 Tamsulosin (Flomax)0.4 Mg Capsule0.4 Mg PO HS Ref 0 03/31/17 Aspirin 81 Mg Gkmilp67 Mg PO DAILY Ref 0 03/31/17 Lactulose 10 Gm/15 Ml Vomlocyk50 Gm PO DAILY 03/31/17 Insulin Glargine (Lantus U100 Insulin Vial)100 Unit/Ml Vial30 Unit SUBQ BID #1 VIAL Ref 0 03/31/17 Levothyroxine (Levoxyl)200 Mcg Sugsgr605 Mcg PO AM Ref 0 03/31/17 Cholecalciferol (Vitamin D3) (Vitamin D3)5,000 Unit Tablet5,000 Unit PO DAILY 03/31/17 Atorvastatin (Lipitor)40 Mg Byxadj51 Mg PO DAILY Ref 0 03/31/17 Midodrine 5 Mg Tablet2.5 Mg PO TID 03/31/17 History History of ENT Problems?: No HEENT History: Denies:: Abnormal Airway Cataracts Difficult Intubation Dysphagia Hearing Problem Sinus Problem TMJ Denture Type: None Teeth Condition: Broken Teeth Tooth Decay Missing Teeth Hx of Heart Problems?: No Cardiovascular History: Positive for:: Peripheral Vascular (stent to RLE artery approx 1 year ago) Denies:: Atrial Fibrillation Chest Pain Congestive Heart Failure Coronary Artery Disease Edema Heart Murmur Hypertension Irregular Heartbeat Pacemaker Thrombophlebitis Other Cardiac History: no [place], PERIPHERAL VASCULAR DISEASE Hx of Respiratory Problem?: No Respiratory History: Positive for:: Chest Surgery (R. lung surgery secondary to infection - no resection of lung) Dyspnea Pneumonia Use of Inhalers / NEBS (for chest colds ) Denies:: Asthma COPD Emphysema Hemoptysis Oxygen Administration Tuberculosis Use of C-PAP Machine Hx Neurologic Problems?: No Neurological History: Denies:: Alzheimer's Disease CVA Dementia Dizziness Headaches Parkinson's Disease Seizures TIA Hx of GI Problems?: No Gastrointestinal History: Positive for:: Cirrhosis Liver Disease Denies:: Gastroesphageal Reflux Other GI Pertinent History: no ascites; h/o hepatic encephalopathy Hx of Problems?: Yes Genitourinary History: Positive for:: Kidney Stones (current admission problem - left stone) Urinary Tract Infection (hx of admission for MSSA sepsis 01/2017) Denies:: HX of Hemodialysis HX of Peritoneal Dialysis: No Male Hx: Denies:: Prostate Problems Scrotal Mass Testicular Surgery Skin History: Positive for:: History Skin Disorders? (itch secondary to liver disease) Denies:: Pressure Ulcers Other Skin Pertinent History: hyperbilirubinemia causing pruritis Hx Musculoskeletal Problems?: No Musculoskeletal History: Denies:: Back Injury Degenerative Joint Fibromyalgia Joint Replacement Musculoskeletal Trauma Myasthenia Gravis Osteoarthritis Rheumatoid Arthritis Systemic Lupus Hx of Psycho/Social Problems?: No Psycho Social History: Denies:: Anxiety Bipolar Disorder Hx Depression Suicide Attempt Hx Surgeries?: Yes (R ESWL, thoracic surgery, RLE stent) Hx Any Other Health Problems?: Yes Other History: Positive for:: Endocrine Disease Hospitalization (02/02 sepsis) Thyroid Disease (had thyroidectomy) Denies:: Cancer History Blood Transfusions: Positive for:: Accept Blood Products? Denies:: Blood Transfuse Reaction Blood Transfusions Hx Diabetes: YesBedside Blood Glucose: 126 Hx Alcohol Use: NoHx Substance Use: No Smoking Status: Former Smoker (quit 1 yr ago, prior 40+ years) Have You Smoked inLast 12 mo: No Stop/Bang Treated for Sleep Apnea?: No Do You Have a CPAP Machine?: No S-Snoring: Do You Snore Loudly: No T-Tired: feel tired, fatigued: No O-Obsered: Observed not breath: No P-Blood Pressure: treated: No B- Body Mass Index > 35 kg/m2: No A- Age over 50: Yes N- Neck Large Circumference: No G- Gender Male: Yes KERI Total Score: 2 KERI Risk Assessment: Low Risk, <3 Yes Risk Assessment Category Category 1A: Patient has history of documented sleep apnea, and HAS NOT received any narcotic, sedative or anesthesia administration during this stay. Category 1B: Patient has history of documented sleep apnea, and HAS received any narcotic , sedative or anesthesia administration during this stay Category 2: Patient has SUSPECTED Obstructive Sleep Apnea, and HAS received any narcotic , sedative or anesthesia administration during this stay. Category 3: Patient has SUSPECTED Obstructive Sleep Apnea and HAS NOT received narcotic, sedative or anesthesia administration during this stay. Category 4: Outpatient in Procedural Areas with known sleep apnea or who screen positive for High Risk via the STOP/BANG questionnaire. Exam Exam Vital Signs Vital Signs Date Time Temp Pulse Resp B/P Pulse Ox O2 Delivery O2 Flow Rate FiO2 05/28/17 12:00 36.2 78 14 125/75 100 Room Air General Appearance: Alert, Oriented X3, Cooperative, No Acute Distress HEENT/AIRWAY: MP 3, Neck Movement (FROM), Mouth Opening (3), Other (TMD3) Lungs: Diminished Heart: Exam Unremarkable, Regular Rate/Rhythm, Normal S1, Normal S2, No Murmurs /Rubs/Gallops Meds/Labs/Diagnostics Admission Meds Current Medications Acetaminophen/ Premix (Tylenol IV/IV Premix) 100 ml @ 400 mls/hr PREOP ONCE IV Last administered on 05/28/17t 13:02; Start 05/28/17 at 06:00; Stop at 06:14; Status DC Bedside Blood Glucose: 126 Plan Impression Patient chart reviewed, patient interviewed and anesthestic plan with risks, benefits, and alternatives discussed, and informed consent obtained. NPO per Anesth. Guidelines: Yes ASA Physical Status: ASA4 Life Threatening Anesthetic Plan: GA Bene/Risks/Altern/Consents: Yes HP Complete Prior to Induction: Yes Santos Sparrow MD May 28, 2017 13:23
[2017-05-28] MEDS ORDERED: Furosemide 10 mg/mL 2 mL Inj IV ONE (14:45)
[2017-05-28] MEDS ORDERED: Lactated Ringer's 1,000 ML IV SCH (15:31)
[2017-05-28] MEDS ORDERED: Lactated Ringer's 500 ML IV PRN (15:31)
[2017-05-28] MEDS ORDERED: MetoCLOpramide 5 mg/mL 2 mL Inj IVPUSH PRN (15:35)
[2017-05-28] MEDS ORDERED: Phenylephrine 10,000 mCg/mL Inj IVPUSH PRN (15:35)
[2017-05-28] MEDS ORDERED: HYDROmorphone 1 mg/mL Inj IVPUSH PRN (15:35)
[2017-05-28] MEDS ORDERED: Ondansetron 2 mg/mL 2 mL Inj IVPUSH PRN (15:35)
[2017-05-28] MEDS ORDERED: fentaNYL-PF 50 mCg/mL 2 mL Inj IVPUSH PRN (15:35)
[2017-05-28] MEDS ORDERED: EPHEDrine Sulfate 50 mg/mL Inj IVPUSH PRN (15:35)
[2017-05-28] MEDS ORDERED: Dexamethasone 4 mg/mL Inj IVPUSH PRN (15:35)
[2017-05-28] MEDS ORDERED: Atropine 0.4 mg/mL Inj IVPUSH PRN (15:35)
--- NOTE | 2017-05-28 16:11 | OP ---
[address] [address] OPERATIVE REPORT PATIENT: MAHENDRA BENNETT : 1960 MR#: [id number] ADMIT: 05/28/2017 JOB ID: [id number] DATE OF SURGERY: 05/28/2017 SURGEON: Sindi Sandoval MD ANESTHESIOLOGIST: Santos Sparrow MD PREOPERATIVE DIAGNOSIS(ES): 1. Left nephrolithiasis. 2. History of urosepsis. 3. Retained right ureteral stent. POSTOPERATIVE DIAGNOSIS(ES): 1. Left nephrolithiasis. 2. History of urosepsis. 3. Retained right ureteral stent. OPERATION PERFORMED: 1. Cystoscopy and right ureteral stent removal. 2. Left extracorporeal shock wave lithotripsy (maximal power of 5.0 x 2500 shocks). ANESTHESIA: General. FINDINGS: There are three individual clusters of calculi measuring up to 6 mm in the upper mid and lower collecting systems on the left. There is an intact right indwelling stent. PROCEDURE SUMMARY: The patient was positioned supine and was administered general anesthesia. He was then repositioned in semi-lithotomy. The lower abdomen, genitalia, and groin were prepped and draped in sterile fashion. The 22-Swedish panendoscope was then passed in the lower urinary tract with findings of a normal urethra, intact external sphincter, prostate 3.5+ cm length with mild lateral lobe hyperplasia. Bladder had a fair amount of amorphous debris. There were encrustations noted on the distal end of the stent that was engaged with the foreign body graspers and removed without incident and discarded. The patient was then repositioned supine. The above-described superior cluster stones were localized in the XYZ plane. Lithotripsy was then commenced at minimal power level for 200 shocks, followed by 2 minutes pause and then lithotripsy was again commenced and power level was gradually increased to a maximum of 5. A total of 800 shocks were delivered to the upper pole collecting system cluster of calculi, 900 to the interpolar region and a final 800 shocks to the lower pole group of calculi. Thereafter the procedure was halted. The patient was awakened, transferred to [facility], and transferred to recovery in stable condition.
--- NOTE | 2017-05-28 19:24 | PCM.ANEP1 ---
Post Anesthesia PACU Phase 1 Assessment Date of Service: May 28, 2017 Vital Signs Vital Signs Date Time Temp Pulse Resp B/P Pulse Ox O2 Delivery O2 Flow Rate FiO2 05/28/17 15:35 36.8 64 14 118/65 94 Room Air 05/28/17 15:30 70 12 137/79 99 Room Air 05/28/17 15:25 36.1 72 12 131/83 99 Room Air 05/28/17 15:10 74 18 122/85 99 Room Air 05/28/17 15:05 74 15 121/78 100 Room Air 05/28/17 15:00 73 15 127/73 100 Room Air 05/28/17 14:55 36.4 73 17 130/77 100 Simple Mask 8 05/28/17 12:00 36.2 78 14 125/75 100 Room Air Anesthetic Administered: GA Level of Alertness: Awake, talking GALVEZ's with Equal Strength: Yes Pain: No Pain Scale Score: 0 Nausea or Vomiting: No CV Function & Hydration Stable: Yes Airway Device: Oxygen Delivery: Simple Mask Lungs: Diminished Summary 05/28/17 15:35 36.8 64 14 118/65 94 Room Air PACU Phase 2 Assessment Complications: No Follow up Care: N/A Patient Instructions Provided: N/A Santos Sparrow MD May 28, 2017 19:24
== END 2017-05-28 23:59 | disposition home or self-care (01) ==
LOC: SAS 10:24
PROVIDERS: ATTEND Specialist
DX: N20.0 Calculus of kidney (principal); E11.9 Type 2 diabetes mellitus without complications; I10 Essential (primary) hypertension; Z79.82 Long term (current) use of aspirin; Z79.4 Long term (current) use of insulin; Z79.899 Other long term (current) drug therapy
CPT/HCPCS: 50590; 52310; J0131; J0690; J1100; J1940; J2250; J2370; J2405; J2704; J2765; J7120